=== PATIENT | female | born 1990 | race Caucasian/White ===

== ENCOUNTER 2020-02-25 19:00 | Observation (INO) | payer OTHER ==
--- NOTE | 2020-02-25 19:31 | ED ---
General Adult HPI - General Chief complaint: Seizure Stated complaint: Seizure Time Seen by Provider: 02/25/20 19:12 Source: patient, EMS Mode of arrival: EMS Limitations: no limitations - History of Present Illness Initial comments: Dictation was produced using [employer] dictation software. please excuse any grammatical, word or spelling errors. This patient was cared for during a federal and state declared state of emergency secondary to Covid 19 Chief Complaint: 29-year-old alcoholic presents emergency department for seizures. History of Present Illness: 29-year-old female she has past medical history of alcohol withdrawal seizures. Patient's last alcohol intake was 8 days ago. His beta patient at [facility] for the last 6 days. She has been recovering fine and received withdrawal medications when all of a sudden today she had one seizure. Patient reports that her seizure was witnessed. Is unclear patient was postictal. Patient states she feels a little jittery. She reports that she feels like she is not getting enough Ativan at [facility] for detox. Patient has no pain complaints. She states that one month ago she had a seizure from alcohol withdrawal. Patient states she has been drinking alcohol r egularly. The ROS documented in this emergency department record has been reviewed and confirmed by me. Those systems with pertinent positive or negative responses have been documented in the HPI. All other systems are other negative and/or noncontributory. PHYSICAL EXAM: General Impression: Alert and oriented x3, not in acute distress, non-tremulous HEENT: Normocephalic atraumatic, extra-ocular movements intact, pupils equal and reactive to light bilaterally, mucous membranes moist. Cardiovascular: Heart regular rate and rhythm Chest: Able to complete full sentences, no retractions, no tachypnea Abdomen: abdomen soft, non-tender, non-distended, no organomegaly Musculoskeletal: Pulses present and equal in all extremities, no peripheral edema Motor: no focal deficits noted Neurological: CN II-XII grossly intact, no focal motor or sensory deficits noted Skin: Intact with no visualized rashes Psych: Normal affect and mood ED course: 29-year-old female presents emergency department for seizure. Patient had a seizure at alcohol detox facility. Vital signs upon arrival are within acceptable limits. Patient's well-appearing at bedside. She does not appear to have significant withdrawal symptoms. She is not tremulous and has stable vital signs. EKG is benign.Laboratory evaluation obtained unremarkable. No left acidosis. Serum alcohol is negative. Patient appears comfortable. She is nontender cardiac. She is observed in emergency department for approximately 2 hours in stable medical condition. She does not appear to show signs of alcohol withdrawal. Last check was 8 hours ago. Disposition options were discussed with patient. Patient requested to be discharge back to [place]. Unclear if patient suffered from a tonic-clonic seizure. She is given referral to neurology. EKG interpretation: Ventricular rate 94, sinus rhythm,. Interval 1:30, QRS 80, QTC 452. No FL prolongation, no QTC prolongation, no ST or T-wave changes noted. . Overall, this EKG is unremarkable - Related Data Home Medications Medication Instructions Recorded Confirmed [place] Carbonate 600 mg PO HS 02/25/20 02/25/20 buPROPion XL [Wellbutrin Xl] 150 mg PO DAILY 02/25/20 02/25/20 buPROPion XL [Wellbutrin Xl] 300 mg PO DAILY 02/25/20 02/25/20 Allergies Allergy/AdvReac Type Severity Reaction Status Date / Time codeine Allergy Swelling Verified 02/25/20 20:02 Review of Systems ROS Statement: Those systems with pertinent positive or pertinent negative responses have been documented in the HPI. ROS Other: All systems not noted in ROS Statement are negative. Past Medical History Additional Past Medical History / Comment(s): Pt has has seziure in the past due to ETOH detox History of Any Multi-Drug Resistant Organisms: None Reported Past Surgical History: No Surgical Hx Reported Past Psychological History: No Psychological Hx Reported Smoking Status: Current some day smoker, Vaper Past Alcohol Use History: Daily Past Drug Use History: Marijuana General Exam Limitations: no limitations Medical Decision Making - Lab Data Result diagrams: 02/25/20 19:35 02/25/20 19:35 Lab Results 02/25/20 02/25/20 02/25/20 Range/Units 19:35 19:35 19:35 WBC 10.9 H (3.8-10.6) k/uL RBC 3.75 L (3.80-5.40) m/uL Hgb 12.7 (11.4-16.0) gm/dL Hct 37.6 (34.0-46.0) % MCV 100.0 (80.0-100.0) fL MCH 33.8 (25.0-35.0) pg MCHC 33.8 (31.0-37.0) g/dL RDW 12.6 (11.5-15.5) % Plt Count 356 (150-450) k/uL MPV 7.8 Neutrophils % 76 % Lymphocytes % 15 % Monocytes % 4 % Eosinophils % 3 % Basophils % 1 % Neutrophils # 8.2 H (1.3-7.7) k/uL Lymphocytes # 1.7 (1.0-4.8) k/uL Monocytes # 0.5 (0-1.0) k/uL Eosinophils # 0.3 (0-0.7) k/uL Basophils # 0.1 (0-0.2) k/uL Sodium 138 (137-145) mmol/L Potassium 3.9 (3.5-5.1) mmol/L Chloride 103 (98-107) mmol/L Carbon Dioxide 27 (22-30) mmol/L Anion Gap 8 mmol/L BUN 8 (7-17) mg/dL Creatinine 0.81 (0.52-1.04) mg/dL Est GFR (CKD-EPI)AfAm >90 (>60 ml/min/1.73 sqM) Est GFR (CKD-EPI)NonAf >90 (>60 ml/min/1.73 sqM) Glucose 102 H (74-99) mg/dL Plasma Lactic Acid Devin 2.0 (0.7-2.0) mmol/L Calcium 9.8 (8.4-10.2) mg/dL Serum Alcohol <10 mg/dL Disposition Clinical Impression: Seizure Disposition: HOME SELF-CARE Condition: Fair Instructions (If sedation given, give patient instructions): New-Onset Seizure in Adults (ED) Is patient prescribed a controlled substance at d/c from ED?: No Referrals: Tete Walker MD [Medical Doctor] - 1-2 days Time of Disposition: 21:11
[2020-02-25] MEDS ORDERED: LORazepam 2 MG/ML INJ IV STA (19:40)
[2020-02-25 20:00] LABS: Basophils # (A) 0.1 k/uL (0-0.2); Basophils % (A) 1 %; Eosinophils # (A) 0.3 k/uL (0-0.7); Eosinophils % (A) 3 %; HCT 37.6 % (34.0-46.0); HGB 12.7 gm/dL (11.4-16.0); Lymphocytes # (A) 1.7 k/uL (1.0-4.8); Lymphocytes % (A) 15 %; MCH 33.8 pg (25.0-35.0); MCHC 33.8 g/dL (31.0-37.0); Mean Platelet Volume 7.8; Monocytes # (A) 0.5 k/uL (0-1.0); Monocytes % (A) 4 %; Neutrophils # (A) 8.2 k/uL (1.3-7.7); Neutrophils % (A) 76 %; Platelet Count 356 k/uL (150-450); RBC 3.75 m/uL (3.80-5.40); RDW 12.6 % (11.5-15.5); WBC 10.9 k/uL (3.8-10.6)
[2020-02-25 20:02] LABS: African American GFR (CKD) >90 (>60 ml/min/1.73 sqM); Alcohol <10 mg/dL; Anion Gap 8 mmol/L; Blood Urea Nitrogen 8 mg/dL (7-17); Calcium 9.8 mg/dL (8.4-10.2); Carbon Dioxide 27 mmol/L (22-30); Chloride 103 mmol/L (98-107); Glucose 102 mg/dL (74-99); Non-African American GFR(CKD) >90 (>60 ml/min/1.73 sqM); Potassium 3.9 mmol/L (3.5-5.1); Sodium 138 mmol/L (137-145)
[2020-02-25] MEDS ORDERED: NALOXONE 0.4 MG/ML 1 ML VIAL IV PRN (21:22)
--- NOTE | 2020-02-25 21:22 | ED ---
Medical Decision Making - Medical Decision Making Patient was initially agreeable for discharge however 16 one to be admitted for neurology consultation. - Lab Data Result diagrams: 02/25/20 19:35 02/25/20 19:35 Lab Results 02/25/20 02/25/20 02/25/20 Range/Units 19:35 19:35 19:35 WBC 10.9 H (3.8-10.6) k/uL RBC 3.75 L (3.80-5.40) m/uL Hgb 12.7 (11.4-16.0) gm/dL Hct 37.6 (34.0-46.0) % MCV 100.0 (80.0-100.0) fL MCH 33.8 (25.0-35.0) pg MCHC 33.8 (31.0-37.0) g/dL RDW 12.6 (11.5-15.5) % Plt Count 356 (150-450) k/uL MPV 7.8 Neutrophils % 76 % Lymphocytes % 15 % Monocytes % 4 % Eosinophils % 3 % Basophils % 1 % Neutrophils # 8.2 H (1.3-7.7) k/uL Lymphocytes # 1.7 (1.0-4.8) k/uL Monocytes # 0.5 (0-1.0) k/uL Eosinophils # 0.3 (0-0.7) k/uL Basophils # 0.1 (0-0.2) k/uL Sodium 138 (137-145) mmol/L Potassium 3.9 (3.5-5.1) mmol/L Chloride 103 (98-107) mmol/L Carbon Dioxide 27 (22-30) mmol/L Anion Gap 8 mmol/L BUN 8 (7-17) mg/dL Creatinine 0.81 (0.52-1.04) mg/dL Est GFR (CKD-EPI)AfAm >90 (>60 ml/min/1.73 sqM) Est GFR (CKD-EPI)NonAf >90 (>60 ml/min/1.73 sqM) Glucose 102 H (74-99) mg/dL Plasma Lactic Acid Devin 2.0 (0.7-2.0) mmol/L Calcium 9.8 (8.4-10.2) mg/dL Serum Alcohol <10 mg/dL Disposition Clinical Impression: Seizure Disposition: ADMITTED IP TO THIS [facility] Condition: Fair Instructions (If sedation given, give patient instructions): New-Onset Seizure in Adults (ED) Decision Time: 21:22
[2020-02-25] MEDS ORDERED: SODIUM CHLORIDE 0.9% 1,000 ML IV SCH (21:30)
[2020-02-25] MEDS ORDERED: 0.9% NACL WITH KCL 20 MEQ/L 1,000 ML with MVI, ADULT NO.4 WITH VIT K 10 ML, THIAMINE 10... IV ONE ×4 (23:08)
[2020-02-25] MEDS: LITHIUM CARBONATE 300 MG CAP PO SCH (23:15)
[2020-02-25] MEDS: ACETAMINOPHEN TAB 325 MG TAB PO PRN (23:15)
[2020-02-25] MEDS: SODIUM CHLORIDE 0.9% 1,000 ML IV SCH (23:15)
[2020-02-26] MEDS: ONDANSETRON 4 MG/2 ML VIAL IVP PRN ×2 (03:32→09:49)
[2020-02-26] MEDS: ACETAMINOPHEN TAB 325 MG TAB PO PRN ×3 (03:33→20:41)
--- NOTE | 2020-02-26 15:37 | P.HPIM ---
History of Present Illness This is a pleasant 59 years old female with past medical history of anxiety, bipolar and depression, alcohol abuse and history of seizure before related to her alcohol withdrawal. Patient does not follow with PCP however she has a psychiatrist and psychologist as an outpatient. Patient presents because of seizure. Patient states that she's been having abnormal bowel movement and area for several months, as per patient she had EGD and colonoscopy about 90 days ago showing colitis and internal hemorrhoids, 2 weeks ago she was admitted for recurrent/, Hospital for colitis and discharge in one week to facility for alcohol detox, however over the last 4-5 days she's been having some headache, abnormal vision sports especially at the periphery, pressure behind her eye and gradually her vision became more blurry associated with lightheadedness delirious yesterday she fell on the ground and she had a seizure activity for about 4-5 minutes as she has been told, patient states that her seizure was witnessed by about 20 people there, he woke up in the facility and then embolus was called and sent her to the hospital emergency room. Currently she is fully awake and oriented, she looks lethargic slightly, she fell nausea and shaking her hands, also she has unsteady gait. today she had 2 loose bowel movement for some abdominal cramps Patient states no new medication has started for her over the last 2 weeks Patient states usually she drinks 1 pint of liquor and sometimes with beer and/or wine, she V at nicotine but she denies illicit drugs. She states that her last drink was about one week ago before she is going for alcohol rehab. She was IUCD , and she denies to do test although risks and benefits are explained to her, she stated she had negative test in the urine one week ago. Patient states that she is a little depressed, sometimes she feels suicidal thoughts, last time she follows with suicidal thoughts was about 3 days ago but she denies any such thoughts today. Vitals are stable. Labs showing very mild high WBC at 10.9 K, rest of CBC, BMP is unremarkable, serum alcohol less than 10 EKG showing normal sinus rhythm at 94 Review of Systems CONSTITUTIONAL: No fever, no malaise, no fatigue. HEENT: No recent visual problems or hearing problems. Denied any sore throat. CARDIOVASCULAR: No orthopnea, PND, no palpitations, no syncope. PULMONARY: No shortness of breath, no cough, no hemoptysis. GASTROINTESTINAL: no nausea, no vomiting, Normoactive bowel sounds. NEUROLOGICAL: No headaches, no weakness, no numbness. HEMATOLOGICAL: Denies any bleeding or petechiae. GENITOURINARY: Denies any burning micturition, frequency, or urgency. MUSCULOSKELETAL/RHEUMATOLOGICAL: Denies any joint pain, swelling, or any muscle pain. ENDOCRINE: Denies any polyuria or polydipsia. Past Medical History Additional Past Medical History / Comment(s): Patient has has seziure in the past due to ETOH detox. Had a seizure approx 1 month ago and was drinking at the time. Colitis and has been admitted in the past for this. History of Any Multi-Drug Resistant Organisms: None Reported Past Surgical History: No Surgical Hx Reported Past Anesthesia/Blood Transfusion Reactions: No Reported Reaction Past Psychological History: Anxiety, Bipolar, Depression Smoking Status: Vaper Past Alcohol Use History: Daily Additional Drug Use History / Comment(s): Denies any marijuana or recreational drug use Medications and Allergies Home Medications Medication Instructions Recorded Confirmed Type [place] Carbonate 600 mg PO HS 02/25/20 02/25/20 History buPROPion XL [Wellbutrin Xl] 150 mg PO DAILY 02/25/20 02/25/20 History buPROPion XL [Wellbutrin Xl] 300 mg PO DAILY 02/25/20 02/25/20 History Allergies Allergy/AdvReac Type Severity Reaction Status Date / Time codeine Allergy Swelling Verified 02/25/20 20:02 Physical Exam Vitals: Vital Signs Temp Pulse Pulse Resp BP BP Pulse Ox 02/26/20 09:57 59 L 18 02/26/20 07:42 98.4 F 59 L 18 112/73 98 02/26/20 02:00 98.3 F 66 18 112/77 99 02/25/20 21:23 81 16 113/73 99 Intake and Output 02/25/20 02/26/20 02/26/20 22:59 06:59 14:59 Other: # Voids 1 Weight 61.235 kg GENERAL: The patient is alert and oriented x3, not in any acute distress. Well developed, well nourished. HEENT: Pupils are round and equally reacting to light. EOMI. No scleral icterus. No conjunctival pallor. Normocephalic, atraumatic. No pharyngeal erythema. No thyromegaly. CARDIOVASCULAR: S1 and S2 present. No murmurs, rubs, or gallops. PULMONARY: Chest is clear to auscultation, no wheezing or crackles. ABDOMEN: Soft, nontender, nondistended, normoactive bowel sounds. No palpable o rganomegaly. MUSCULOSKELETAL: No joint swelling or deformity. EXTREMITIES: No cyanosis, clubbing, or pedal edema. NEUROLOGICAL: Gross neurological examination did not reveal any focal deficits. SKIN: No rashes. No petechiae Results CBC & Chem 7: 02/25/20 19:35 02/25/20 19:35 Labs: Abnormal Lab Results - Last 24 Hours (Table) 02/25/20 02/25/20 Range/Units 19:35 19:35 WBC 10.9 H (3.8-10.6) k/uL RBC 3.75 L (3.80-5.40) m/uL Neutrophils # 8.2 H (1.3-7.7) k/uL Glucose 102 H (74-99) mg/dL Thrombosis Risk Factor Assmnt - Choose All That Apply Any of the Below Risk Factors Present?: No Other Risk Factors: No Other congenital or acquired thrombophilia - If yes, enter type in comment: No Thrombosis Risk Factor Assessment Level: Very Low Risk Assessment and Plan Assessment: Seizure Alcohol abuse, Undergoing alcohol detox at-risk of alcohol withdrawal History of colitis, with some loose bowel movements and abdominal cramps Anxiety, depression and bipolar,with some recent history of suicidal thoughts Nicotine dependence Plan: This is a pleasant 49 years old female who was up against with seizure, continue seizure precaution, Ativan as needed and neurology consult. Continue with gentle hydration with banana bag. We will check C. diff Also we'll consult psychiatrist with suicidal precautions, continue with lithium . Wellbutrin was held because it lowers seizure threshold. also check lithium level . Continue with Ativan as needed Labs and medication were reviewed.. Continue same treatment. Continue with symptomatic treatment. Resume home medication. Monitor lytes and vitals. DVT and GI prophylaxis. Further recommendations depends on the clinical course of the patient DVT prophylaxis: Subcutaneous heparin GI Prophylaxis: Pepcid PT/OT: Pending Prognosis is guarded
--- NOTE | 2020-02-26 15:53 | EEG ---
ELECTROENCEPHALOGRAM REPORT DATE OF SERVICE: 02/26/2020 PREAMBLE: This is a 29-year-old female with seizure. This study is performed to evaluate for any epileptiform activity. EEG FINDINGS: This is a 21 channel routine EEG recording in a patient utilizing 10-20 international system with referential and bipolar montages. The background consists of well- developed, moderate voltage activity in mixed alpha and some fast frequency beta activity. Background seems to be reactive to eye opening and closing. Drowsiness was seen with appearance of bilaterally symmetric theta frequency rhythm. Deeper stages of sleep were not seen. No focal or generalized epileptiform activity was seen. The EKG channel showed no arrhythmia. IMPRESSION: This is a normal awake and drowsy EEG. No focal, lateralized, or epileptiform activity was seen. The presence of slightly excessive fast frequency beta activity suggests medication effect. MMODL / IJN: [id number] /
[2020-02-26] MEDS: LORazepam 2 MG/ML INJ IV PRN ×2 (16:07→20:30)
--- NOTE | 2020-02-26 18:42 | P.CNNES ---
History of Present Illness Consult date: 02/26/20 Requesting physician: Mandeep Conway Reason for Consult: Seizure History of Present Illness: Patient is a 29-year-old female with history of alcoholism presented to the hospital yesterday at 7 PM by ambulance. Patient has history of alcohol withdrawal seizures in the past as mentioned below. Patient's last alcohol i ntake was 8 days ago. Patient was in alcohol withdrawal facility [place]. Patient states that she has been feeling cleared sensation for last few days. On the day of seizure, she was walking through the dining room, her face started feeling funny, vision started going dark and she blacked out. When she came to, she was in the floor, and her head was on the nurse's lap in the facility. She did hit her head on the back. Patient did not have any tongue bite or urinary incontinence. Vital signs on arrival blood pressure 113/73, pulse rate 81, temperature 98.3. EKG shows normal sinus rhythm. Probable referral left atrial enlargement. Patient's blood test shows WBC 10.9 hemoglobin 12.7, platelets 356. Chem-7 is normal. Calcium normal blood elbow level negative. patient states that she had history of seizure twice in the past as well. The first one was about 3 years ago in the next 16 weeks ago. Vivek she was doing alcoholism. However on this time, she has not had any alcoholic drink for last 8 days. She went to rehab facility on 02/19/2020. Patient has been started on Wellbutrin 450 mg every day since she is in rehab facility. Patient drinks 1 to 2. of liquor every day for the last 8 months. She prefers vodka and sometimes whiskey. She smokes couple packs of cigarettes per week. Patient does not take any benzos. Patient states her sister also has seizures, who is 47 years of age. Review of Systems As above in detail. Patient complains of depression, anxiety. Denies any problems with vision, hoarseness, sore throat, dysphagia. Denies abdominal pain, nausea, vomiting, diarrhea. Denies neck or back pain. All other review of systems unremarkable. Past Medical History Additional Past Medical History / Comment(s): Patient has has seziure in the past due to ETOH detox. Had a seizure approx 1 month ago and was drinking at the time. Colitis and has been admitted in the past for this. History of Any Multi-Drug Resistant Organisms: None Reported Past Surgical History: No Surgical Hx Reported Past Anesthesia/Blood Transfusion Reactions: No Reported Reaction Past Psychological History: Anxiety, Bipolar, Depression Smoking Status: Vaper Past Alcohol Use History: Daily Additional Drug Use History / Comment(s): Denies any marijuana or recreational drug use Medications and Allergies Home Medications Medication Instructions Recorded Confirmed Type [place] Carbonate 600 mg PO HS 02/25/20 02/25/20 History buPROPion XL [Wellbutrin Xl] 150 mg PO DAILY 02/25/20 02/25/20 History buPROPion XL [Wellbutrin Xl] 300 mg PO DAILY 02/25/20 02/25/20 History Allergies Allergy/AdvReac Type Severity Reaction Status Date / Time codeine Allergy Swelling Verified 02/25/20 20:02 Physical Examination - Vital Signs Vital Signs: Vital Signs Temp Pulse Pulse Resp BP BP Pulse Ox 02/26/20 09:57 59 L 18 02/26/20 07:42 98.4 F 59 L 18 112/73 98 02/26/20 02:00 98.3 F 66 18 112/77 99 02/25/20 21:23 81 16 113/73 99 Intake and Output 02/25/20 02/26/20 02/26/20 22:59 06:59 14:59 Other: # Voids 1 Weight 61.235 kg On examination patient is a young female, in no acute distress. She is alert and awake fully oriented. Speech and language functions are normal. Attention, concentration, fund of knowledge is adequate. On cranial nerve examination pupils are round and reactive to light, visual brumfield are full on confrontation, extraocular muscles are intact with no nystagmus. Face is symmetric, tongue protrudes to the midline. Palatal elevation and sensation normal. Hearing and shoulder shrug normal. Facial sensation is normal. On mus michelle strength testing there is no pronator drift and the strength is normal in arms and legs distally and proximally. Reflexes are 2+ all over and plantars downgoing. Sensory touch is equal. No ataxia for [id number] testing. Tone and bulk of muscles normal. Patient has very fine tremors of outstretched hands. Appears to be still withdrawing. On general examination there is no carotid bruit or murmur, peripheral pulses present. Chest is clear, abdomen soft nontender. Results - Laboratory Findings CBC and BMP: 02/25/20 19:35 02/25/20 19:35 Abnormal Lab Findings: Abnormal Labs 02/25/20 02/25/20 19:35 19:35 WBC 10.9 H RBC 3.75 L Neutrophils # 8.2 H Glucose 102 H Assessment and Plan Assessment: * Seizure, probably due to alcohol withdrawal, and also probably related to use of Wellbutrin, which can lower seizure threshold. * History of seizures twice in the past, both related to alcoholism. * Depression. Plan: * Patient had an EEG performed today, which is normal. No focal, lateralized or epileptiform activity was seen. Presence of slightly excessive fast frequency beta activity suggests medication effect. * Patient's seizure likely provoked due to alcohol withdrawal and use of Wellbutrin. Will stop Wellbutrin. Continue treatment for alcohol withdrawal. No indication for antiepileptic medication. * Patient informed of [place] state law of no driving unless seizure free for 6 months, climbing ladders, operate dangerous machinery or unsupervised swimming. * Patient does have significant depression, but denies any suicidal ideation. We are taking her off Wellbutrin. I discussed with her about trying another antidepressant medication like Lexapro, but patient declined. She states she has "tried them all". * Neurologically clear for discharge.
[2020-02-26] MEDS: HEPARIN SODIUM,PORCINE 5,000 UNIT/ML 1 ML VIAL SQ SCH (20:30)
[2020-02-26] MEDS: FAMOTIDINE 20 MG/2 ML VIAL IV SCH (20:30)
[2020-02-26] MEDS: LITHIUM CARBONATE 300 MG CAP PO SCH (20:30)
[2020-02-27] MEDS: SODIUM CHLORIDE 0.9% 1,000 ML IV SCH (01:16)
[2020-02-27] MEDS: LORazepam 2 MG/ML INJ IV PRN (02:05)
[2020-02-27] MEDS: FAMOTIDINE 20 MG/2 ML VIAL IV SCH (06:55)
[2020-02-27] MEDS: HEPARIN SODIUM,PORCINE 5,000 UNIT/ML 1 ML VIAL SQ SCH (06:55)
[2020-02-27 08:14] VITALS: RESP 16
[2020-02-27] MEDS ORDERED: diphenhydrAMINE 25 MG CAP PO STA (08:59)
[2020-02-27] MEDS: ONDANSETRON 4 MG/2 ML VIAL IVP PRN (09:00)
[2020-02-27] MEDS: ACETAMINOPHEN TAB 325 MG TAB PO PRN (09:00)
[2020-02-27] MEDS ORDERED: hydrOXYzine pamoate 25 MG CAP PO PRN (13:55)
[2020-02-27] MEDS ORDERED: SERTRALINE 50 MG TAB PO SCH (14:00)
[2020-02-27] MEDS ORDERED: traZODone HCL 100 MG TAB PO PRN (14:37)
--- NOTE | 2020-02-27 14:40 | P.CN ---
Psychiatric Consult - . Consult date: 02/27/20 Consult:: 02/27/20 13:56 IDENTIFYING DATA: This patient is a 29 y/o female with a hx of etoh use disorder, coming from [place] and currently living wit her grandmother and fiance, has no kids and works at [employer]. REASON FOR REFERRAL: Psychiatry was consulted for depression with suicidal ideations and Wellbutrin was being held due to seizures. HISTORY OF PRESENT ILLNESS: The patient presented to the hospital for alcohol withdrawal seizure. Patient reported in the ER that her last drink was 8 days prior to admission. She states that she was coming from [place] which she has been there for the past 6 days prior to coming in the hospital and suffered a seizure prior to coming into the hospital due to the alcohol withdrawal. Neurology was following along and did an EEG. Patient's nurse claims that patient has been doing fairly well and no specific complaints or problems. Patient was seen at the bedside and was agreeable to speak to radio news writer. She was alert, and cooperative with radio news writer during interview. She claims that she has been dealing with depression for several years now. She claims that at this current time she is not having any suicidal thoughts and states that she was having a "rough time" at [place]. She claims that she is there for alcohol detox and withdrawal along with rehab and states that she was feeling "not well" for the past week before finally having a seizure. She claims that she has "dark vision and was feeling diaphoretic or to the event. She states that she has been sleeping fairly with the trazodone at nighttime. She claims that she has a history of bipolar [address] Thorne at [facility]. She admits to ongoing anxiety. She admits to a fair appetite. At this time patient denies any suicidal or homical ideations, intent or plan. Patient denies any auditory, visual hallucinations and denies any paranoia or delusions. Patients admits to using alcohol daily approximately 1-2 pints of liquor per day and states that this is going on for over a year now. She denies any other recreational drug use however does use cigarettes daily and sleeping. PAST PSYCHIATRIC HISTORY: Patient has a a history of bipolar disorder type 2. She claims that she was previously on lithium Wellbutrin and trazodone. She claims that she was previously admitted to [facility] in [place] psychiatrically over 3 years ago and has been admitted 2 times prior to that. Patient follows up at [facility] with Dr. Thorne. She claims that she had 2 suicide attempts in the past when she was a lot younger one where she cut herself now that she overdosed. PAST MEDICAL HISTORY: Seizure disorder ALLERGIES: as per EMR. CHEMICAL DEPENDENCY HISTORY: as per HPI. FAMILY PSYCHIATRIC/SUBSTANCE USE HISTORY: States that her brother father and mother all have depression. SOCIAL HISTORY: Patient was born and raised in [place], [place]. She states that she currently lives with her fianc and grandmother in a house. She claims that she has no kids and works at [employer]. She states that she completed some college then dropped out. She states that she has two OWI charges and served time in [facility] 2 yrs ago. MENTAL STATUS EXAM: General Appearance: Patient appears to be stated age is alert, directable, and attempts to be cooperative. Patient appears to have [fair] hygiene and grooming wearing hospital gown with [fair] eye contact. Behavior: [Patient is calmly lying in bed without any agitated behavior.] Timid at times. Speech: Patient's speech is fluent and nonpressured. [place]. Mood/Affect: Patient reports their mood is "depressed", affect is congruent and constricted Suicidality/Homicidality: Patient denies having any suicidal or homicidal ideation intent or plan. Perceptions: Patient denies any visual hallucinations and denies any auditory hallucinations Though content/process: There is no evidence of any delusional thought content and thought process is linear and goal-directed. poverty of content. Memory and concentration: AOX3, grossly intact for the purposes of this session Judgment and insight: fair. IMPRESSIONS: Bipolar disorder, depressed Alcohol use disorder nicotine dependence. PLAN: -At this time patient DOES NOT meet criteria for inpatient psychiatric admission. -Would recommend the following medication changes/additions: Agree with discontinuing Wellbutrin at this time due to lowering the threshold for seizures. Patient is agreeable to start Zoloft 50 mg daily for mood/anxiety today. Patient can be sent home with a two-week supply of Vistaril 25 mg twice a day when necessary for anxiety. Can continue with trazodone 100 mg daily at bedtime when necessary for insomnia. Continue with lithium 600 mg daily at bedtime for mood stabilization/suicidal thoughts. -Patient will be following up with Dr. Thorne at [facility] who is her outpt psychiatrist and also will be continuing with outpt therapy at [facility]. -Box Office Agent spoke with patient about substance abuse and the harmful effects on medical and mental health, patient verbally understood and agreed. -Patient is agreeable to go back to [place] upon discharge to continue on with inpatient rehab. -Communicated plan to patient's nurse -Psychiatry will sign off at this time -Please contact with any questions.
[2020-02-27 15:34] VITALS: BP 113/75; PULSE 92; TEMP 98.4
--- NOTE | 2020-02-28 00:02 | P.DS ---
Providers Date of admission: 02/25/20 21:22 Attending physician: Mukund Moody Consults: 02/25/20 21:23 Consult Physician Routine Consulting Provider: Alfredo Olea Consult Reason/Comments: seizure Do you want consulting provider notified?: Yes 02/26/20 15:28 Consult Physician Urgent Consulting Provider: Yasmany James Consult Reason/Comments: depression , with suicidal thoughts at times. wellbutrin is on hold for SZD Do you want consulting provider notified?: Yes Primary care physician: Stated None Hospital Course: Diagnoses: Seizure secondary to combined effect of alcohol withdrawal and Wellbutrin Alcohol abuse, Undergoing alcohol detox at-risk of alcohol withdrawal History of colitis, with some loose bowel movements and abdominal cramps , imp roving Anxiety, depression and bipolar,with some recent history of suicidal thoughts Nicotine dependence Hospital course: This is a pleasant 29 years old female with past medical history of anxiety, bipolar and depression, alcohol abuse and history of seizure before related to her alcohol withdrawal. Patient does not follow with PCP however she has a psychiatrist and psychologist as an outpatient. Patient presents because of seizure. She was doing alcohol detox for the last week when she developed witnessed seizure, she has been evaluated by neurologist, EEG showing no epileptic discharge. No more seizures and patient is back to her baseline, it is thought that her seizures alcohol withdrawal and oozing Wellbutrin for depression as she was noncompliant with Wellbutrin to over the last 2 weeks when she started taking it every day. She was taking 300 mg daily and 150 mg at night. Wellbutrin was stopped and patient informed and she agrees. No need for other antiseizure medication per neurologist Psych team evaluated the patient: Recommended to continue to hold Wellbutrin and [address] with Zoloft and hydroxyzine for 2 weeks Also recommended trazodone 100 mg daily at bedtime when necessary for insomnia. However there is severe interaction with the trazodone and lithium so it wasn't provided for the patient upon discharge Patient was cleared for discharge by neurologist and psychiatric services Problems and management plan were discussed with the patient and he verbalized understanding and acceptance Patient was found stable and can be discharged home however he needs follow-up as an outpatient. Patient was instructed to follow up with PCP within one week and patient agrees Also patient was instructed to go back to finish her alcohol rehab and she agrees Physical exam Gen: patient is a AAOx3, no distress CVS: S1-S2, RRR, no murmur Lungs: B/L CTA, no wheezing Abdomen: soft, no distention, no tenderness, positive bowel sounds Extremity: no leg edema or induration Time spent more than 35 minutes Patient Condition at Discharge: Fair Plan - Discharge Summary Discharge Rx Participant: No New Discharge Prescriptions: New Acetaminophen Tab [Tylenol] 650 mg PO Q4HR PRN tab PRN Reason: Fever And/ Or Pain hydrOXYzine pamoate [Vistaril] 25 mg PO BID PRN #30 cap PRN Reason: Anxiety Sertraline [Zoloft] 50 mg PO DAILY #30 tab Continue [place] Carbonate 600 mg PO HS Discontinued buPROPion XL [Wellbutrin Xl] 300 mg PO DAILY buPROPion XL [Wellbutrin Xl] 150 mg PO DAILY Discharge Medication List [place] Carbonate 600 mg PO HS 02/25/20 [History] Acetaminophen Tab [Tylenol] 650 mg PO Q4HR PRN tab 02/27/20 [Rx] Sertraline [Zoloft] 50 mg PO DAILY #30 tab 02/27/20 [Rx] hydrOXYzine pamoate [Vistaril] 25 mg PO BID PRN #30 cap 02/27/20 [Rx] Follow up Appointment(s)/Referral(s): Aaron Lima MD [REFERRING[facility] Patient Instructions/Handouts: New-Onset Seizure in Adults (ED) Activity/Diet/Wound Care/Special Instructions: [place] to pick up operator on discharge: #[phone] resume your previous diet activity as tolerated we recommend you following up with Dr. Thorne at [facility] who is your outpt psychiatrist Discharge Disposition: HOME SELF-CARE
== END 2020-02-27 17:04 | disposition home or self-care (01) ==
LOC: EC 19:00 → 4SSUR 21:22
PROVIDERS: ADMIT Hospitalist; ATTEND Hospitalist
DX: R56.9 Unspecified convulsions (principal); F10.239 Alcohol dependence with withdrawal, unspecified; F17.210 Nicotine dependence, cigarettes, uncomplicated; F31.9 Bipolar disorder, unspecified; F41.9 Anxiety disorder, unspecified; I51.7 Cardiomegaly; K52.9 Noninfective gastroenteritis and colitis, unspecified; R45.851 Suicidal ideations; Z79.899 Other long term (current) drug therapy
CPT/HCPCS: 99285; 96365; 96376 ×2; 96366; 96372 ×2; 96375 ×2; 36415; 95819; 93005; 97161; 97165; 80048; 83605; 80178; 85025; G0378 ×3; G0480; J2060 ×3; J1644 ×2; J3411; J2405 ×2; 80320

== ENCOUNTER → 2020-05-26 | Outpatient (CLI) | payer OTHER ==
--- NOTE | 2020-05-26 16:42 | XR ---
Cervical spine HISTORY: Pain radiating into hands 5 views of the cervical spine There is a reversal of the normal cervical lordosis. Cervical vertebral bodies show preserved height and bone mineralization. Disc spaces are relatively maintained, there is no significant foraminal enc roachment. Odontoid view somewhat limited. Prevertebral soft tissues are normal. There is some mild f acet arthropathy. IMPRESSION: Reversal of normal lordosis could be due to muscle spasm. Facet arthropathy changes, cerv ical MRI may be of benefit
== END | disposition home or self-care (01) ==
LOC: RADXRMAIN 13:58
PROVIDERS: ATTEND Nurse Practitioner Family
DX: M47.812 Spondylosis without myelopathy or radiculopathy, cervical region (principal)
CPT/HCPCS: 72050

== ENCOUNTER → 2020-11-04 | Outpatient (CLI) | payer OTHER ==
[2020-11-05 03:29] LABS: T4, Free (Free Thyroxine) 1.1 ng/dL (0.80-1.80)
[2020-11-05 04:03] LABS: African American GFR (CKD) 86.3 (60.0-200.0); Lithium 0.5 mmol/L (0.5-1.2); Non-African American GFR(CKD) 74.5 (60.0-200.0)
== END | disposition home or self-care (01) ==
LOC: LABWHC1 12:02
PROVIDERS: ATTEND Psychiatry & Neurology Psychiatry
DX: Z79.899 Other long term (current) drug therapy (principal)
CPT/HCPCS: 36415; 80178; 82565; 84439; 84443; 84520

== ENCOUNTER → 2020-12-23 | Outpatient (CLI) | payer OTHER | END | disposition home or self-care (01) | LOC: LABWHC1 12:07 | PROVIDERS: ATTEND Nurse Practitioner Family | DX: M25.50 Pain in unspecified joint (principal); Z82.61 Family history of arthritis | CPT/HCPCS: 36415; 86200; 86235 ==

== ENCOUNTER 2021-02-26 13:07 | Emergency (ER) | payer OTHER ==
[2021-02-26 13:24] VITALS: BP 121/79; PULSE 95; RESP 18; TEMP 97.8
[2021-02-26] MEDS ORDERED: ONDANSETRON 4 MG/2 ML VIAL IVP STA (13:48)
[2021-02-26] MEDS ORDERED: SODIUM CHLORIDE 0.9% 1,000 ML IV STA (13:48)
--- NOTE | 2021-02-26 14:10 | ED ---
Nausea/Vomiting/Diarrhea HPI - General Chief complaint: Nausea/Vomiting/Diarrhea Stated complaint: Covid, Dehydration, NVD Time Seen by Provider: 02/26/21 13:48 Source: patient, RN notes reviewed Mode of arrival: ambulatory Limitations: no limitations - History of Present Illness Initial comments: This is a pleasant 30-year-old female presents a risk factor pain nausea and vomiting. Patient states she's had symptoms are COVID-19 for about 10 days. S he states she had respiratory symptoms including runny nose, sore throat, body aches, and mild cough. She states that about 3 days ago she started developing diarrhea and vomiting. Patient denies any hematemesis or coffee-ground emesis. No melena or hematochezia. Denies any chest pain or abdominal pain. No skin rashes or lesions. No headache. No vision or hearing changes. Patient denies chance of . No vaginal discharge. MD complaint: nausea, vomiting - Related Data Home Medications Medication Instructions Recorded Confirmed [place] Carbonate 600 mg PO HS 02/25/20 02/25/20 Previous Rx's Medication Instructions Recorded Acetaminophen Tab [Tylenol] 650 mg PO Q4HR PRN tab 02/27/20 Sertraline [Zoloft] 50 mg PO DAILY #30 tab 02/27/20 hydrOXYzine pamoate [Vistaril] 25 mg PO BID PRN #30 cap 02/27/20 Ondansetron Odt [Zofran Odt] 4 mg PO Q8HR PRN #20 tab 02/26/21 Allergies Allergy/AdvReac Type Severity Reaction Status Date / Time codeine Allergy Swelling Verified 02/26/21 13:24 Review of Systems ROS Statement: Those systems with pertinent positive or pertinent negative responses have been documented in the HPI. ROS Other: All systems not noted in ROS Statement are negative. Past Medical History Additional Past Medical History / Comment(s): Patient has has seziure in the past due to ETOH detox. Had a seizure approx 1 month ago and was drinking at the time. Colitis and has been admitted in the past for this. History of Any Multi-Drug Resistant Organisms: None Reported Past Surgical History: No Surgical Hx Reported Past Anesthesia/Blood Transfusion Reactions: No Reported Reaction Past Psychological History: Anxiety, Bipolar, Depression Smoking Status: Vaper Past Alcohol Use History: Daily General Exam - General Exam Comments Initial Comments: Past healthy-appearing 30-year-old female in minimal distress. Patient does not appear to be ill or toxic. Limitations: no limitations General appearance: alert, in no apparent distress Head exam: Present: atraumatic, normocephalic, normal inspection Eye exam: Present: normal appearance, PERRL, EOMI. Absent: scleral icterus, conjunctival injection, periorbital swelling ENT exam: Present: normal exam, mucous membranes moist Neck exam: Present: normal inspection. Absent: tenderness, meningismus, lym phadenopathy Respiratory exam: Present: normal lung sounds bilaterally. Absent: respiratory distress, wheezes, rales, rhonchi, stridor Cardiovascular Exam: Present: regular rate, normal rhythm, normal heart sounds. Absent: systolic murmur, diastolic murmur, rubs, gallop, clicks GI/Abdominal exam: Present: soft, hyperactive bowel sounds. Absent: distended, tenderness, guarding, rebound, rigid Extremities exam: Present: normal inspection, full ROM, normal capillary refill. Absent: tenderness, pedal edema, joint swelling, calf tenderness Back exam: Present: normal inspection Neurological exam: Present: alert, oriented X3, CN II-XII intact Psychiatric exam: Present: normal affect, normal mood Skin exam: Present: warm, dry, intact, normal color. Absent: rash Course Vital Signs 02/26/21 13:19 Temperature 97.8 F Pulse Rate 95 Respiratory 18 Rate Blood Pressure 121/79 O2 Sat by Pulse 99 Oximetry - Reevaluation(s) Reevaluation #1: 02/26/21 14:45 Patient reevaluated and is resting comfortably in the room. Only down fluids without difficulty. Medical Decision Making - Medical Decision Making Patient presents with, nausea/vomiting. Likely related COVID-19 and she did test positive within the last 10 days. Patient now quarantine. Patient states her respiratory symptoms have essentially resolved but she still has vomiting and diarrhea. No abdominal tenderness. Differential diagnosis includes other viral etiology as well. Patient also states that she was drinking from contaminated water filter over the past 3 days. This is possible but less likely etiology. Follow-up with your regular physician as directed. Return to the ER immediately if any symptoms worsen, new symptoms arise, or any other problems develop. Patient reevaluated prior to discharge as doing well. Holding down fluids. Will treat with Zofran and clear liquid diet. Patient concurs with this treatment plan. Quarantine measures discussed. Follow-up with your regular physician as directed. Return to the ER immediately if any symptoms worsen, new symptoms arise, or any other problems develop. - Lab Data Result diagrams: 02/26/21 14:00 02/26/21 14:00 Lab Results 02/26/21 02/26/21 02/26/21 Range/Units 14:00 14:00 14:00 WBC 11.0 H (3.8-10.6) k/uL RBC 4.84 (3.80-5.40) m/uL Hgb 14.4 (11.4-16.0) gm/dL Hct 43.8 (34.0-46.0) % MCV 90.4 (80.0-100.0) fL MCH 29.7 (25.0-35.0) pg MCHC 32.8 (31.0-37.0) g/dL RDW 12.7 (11.5-15.5) % Plt Count 499 H (150-450) k/uL MPV 7.2 Neutrophils % 76 % Lymphocytes % 20 % Monocytes % 3 % Eosinophils % 0 % Basophils % 0 % Neutrophils # 8.3 H (1.3-7.7) k/uL Lymphocytes # 2.2 (1.0-4.8) k/uL Monocytes # 0.3 (0-1.0) k/uL Eosinophils # 0.0 (0-0.7) k/uL Basophils # 0.0 (0-0.2) k/uL Sodium 138 (137-145) mmol/L Potassium 4.3 (3.5-5.1) mmol/L Chloride 102 (98-107) mmol/L Carbon Dioxide 24 (22-30) mmol/L Anion Gap 12 mmol/L BUN 14 (7-17) mg/dL Creatinine 0.59 (0.52-1.04) mg/dL Est GFR (CKD-EPI)AfAm >90 (>60 ml/min/1.73 sqM) Est GFR (CKD-EPI)NonAf >90 (>60 ml/min/1.73 sqM) Glucose 97 (74-99) mg/dL Calcium 9.2 (8.4-10.2) mg/dL Total Bilirubin 0.4 (0.2-1.3) mg/dL AST 36 (14-36) U/L ALT 25 (4-34) U/L Alkaline Phosphatase 67 (38-126) U/L Total Protein 7.2 (6.3-8.2) g/dL Albumin 4.3 (3.5-5.0) g/dL Lipase 100 (23-300) U/L Urine Color Light Yellow Urine Appearance Clear (Clear) Urine pH 6.0 (5.0-8.0) Ur Specific [place] 1.006 (1.001-1.035) Urine Protein Negative (Negative) Urine Glucose (UA) Negative (Negative) Urine Ketones Negative (Negative) Urine Blood Negative (Negative) Urine Nitrite Negative (Negative) Urine Bilirubin Negative (Negative) Urine Urobilinogen <2.0 (<2.0) mg/dL Ur Leukocyte Esterase Negative (Negative) Urine HCG, Qual (Not Detectd) 02/26/21 Range/Units 14:00 WBC (3.8-10.6) k/uL RBC (3.80-5.40) m/uL Hgb (11.4-16.0) gm/dL Hct (34.0-46.0) % MCV (80.0-100.0) fL MCH (25.0-35.0) pg MCHC (31.0-37.0) g/dL RDW (11.5-15.5) % Plt Count (150-450) k/uL MPV Neutrophils % % Lymphocytes % % Monocytes % % Eosinophils % % Basophils % % Neutrophils # (1.3-7.7) k/uL Lymphocytes # (1.0-4.8) k/uL Monocytes # (0-1.0) k/uL Eosinophils # (0-0.7) k/uL Basophils # (0-0.2) k/uL Sodium (137-145) mmol/L Potassium (3.5-5.1) mmol/L Chloride (98-107) mmol/L Carbon Dioxide (22-30) mmol/L Anion Gap mmol/L BUN (7-17) mg/dL Creatinine (0.52-1.04) mg/dL Est GFR (CKD-EPI)AfAm (>60 ml/min/1.73 sqM) Est GFR (CKD-EPI)NonAf (>60 ml/min/1.73 sqM) Glucose (74-99) mg/dL Calcium (8.4-10.2) mg/dL Total Bilirubin (0.2-1.3) mg/dL AST (14-36) U/L ALT (4-34) U/L Alkaline Phosphatase (38-126) U/L Total Protein (6.3-8.2) g/dL Albumin (3.5-5.0) g/dL Lipase (23-300) U/L Urine Color Urine Appearance (Clear) Urine pH (5.0-8.0) Ur Specific [place] (1.001-1.035) Urine Protein (Negative) Urine Glucose (UA) (Negative) Urine Ketones (Negative) Urine Blood (Negative) Urine Nitrite (Negative) Urine Bilirubin (Negative) Urine Urobilinogen (<2.0) mg/dL Ur Leukocyte Esterase (Negative) Urine HCG, Qual Not Detected (Not Detectd) Disposition Clinical Impression: COVID-19, Nausea vomiting and diarrhea Disposition: HOME SELF-CARE Condition: Good Instructions (If sedation given, give patient instructions): Coronavirus Disease 2019 (COVID-19), Acute Nausea and Vomiting (ED) Additional Instructions: SELF QUARANTINE DISCHARGE: As you are at risk for symptoms due to coronavirus, please stay home and stay away from others as much as possible. Please maintain social distance of 6 feet if possible. You should not return to work until at least 3 days (72 hours) have passed since recovery of symptoms. This defined as resolution of fever without the use of fever reducing medicines and improvement in respiratory symptoms (e.g,, cough, shortness of breath) Isolation can end at least 5 days after symptom onset and after fever ends for 24 hours (without the use of fever-reducing medication) and symptoms are improving, if these people can continue to properly wear a well-fitted mask around others for 5 more days after the 5-day isolation period. If you're still having symptoms at the end of 5 day period, isolate for an additional 5 days. More information about what to do if you are sick can be found on the CDC website at https://www.cdc.gov/coronavirus /2019-ncov/pt-gps-llw-sick/pxmmi-lfto-zbmj.html Expect the symptoms to last for 7-14 days from onset. Use acetaminophen (Tylenol) as needed for discomfort. You can take a maximum of 1 gram every 6 hours for discomfort, with your total dose in 24 hours not exceeding 4 grams. Be sure to maintain hydration. Drink continuous water and/or items high in vitamin C, such as orange juice and/or lemonade. Unless you have high blood pressure, you may consider Sudafed (which is [id number]) for nasal congestion. I would suggest that a short acting Sudafed rather than the 24 hour Sudafed. For a cough you may take Mucinex or Robitussin. Also consider the use of Vicks Vapor Rub or your chest when you sleep. Use a humidifier that is cleaned frequently, in the bedroom at night. For Nausea /Vomiting/Diarrhea associated with your Illness: o Small frequent sips of room temperature liquids. o Diet: [place] [employer] - If you are still experiencing discomfort and/or nausea please slowly advancing your diet using the BRAT Diet = bananas, rice, apples/apple sauce, toast. o With diarrhea avoid any dairy for 48 hours after symptoms resolved. o Continue with activity as tolerated. If your symptoms do get worse and you believe that the upper respiratory infection has developed into something else, such as pneumonia or severe dehydration, please return to the emergency department or follow-up with your primary care. But expect to be symptomatic for the days as indicated above Prescriptions: Ondansetron Odt [Zofran Odt] 4 mg PO Q8HR PRN #20 tab PRN Reason: Vomiting Is patient prescribed a controlled substance at d/c from ED?: No Referrals: Princess Almendarez MD [Primary Care Provider] - 03/04/21 Time of Disposition: 14:42
[2021-02-26 14:23] LABS: Basophils % (A) 0 %; Eosinophils % (A) 0 %; HCT 43.8 % (34.0-46.0); HGB 14.4 gm/dL (11.4-16.0); Lymphocytes # (A) 2.2 k/uL (1.0-4.8); Lymphocytes % (A) 20 %; MCH 29.7 pg (25.0-35.0); MCHC 32.8 g/dL (31.0-37.0); MCV 90.4 fL (80.0-100.0); Mean Platelet Volume 7.2; Monocytes # (A) 0.3 k/uL (0-1.0); Monocytes % (A) 3 %; Neutrophils # (A) 8.3 k/uL (1.3-7.7); Neutrophils % (A) 76 %; Platelet Count 499 k/uL (150-450); RBC 4.84 m/uL (3.80-5.40); RDW 12.7 % (11.5-15.5)
[2021-02-26 14:24] LABS: Appearance,Urine Clear (Clear); Bilirubin,Urine Negative (Negative); Blood,Urine Negative (Negative); Color,Urine Light Yellow; Glucose,Urine (UA) Negative (Negative); Ketones,Urine Negative (Negative); Leukocyte Esterase,Urine Negative (Negative); Nitrite,Urine Negative (Negative); Protein,Urine Negative (Negative); Specific Gravity,Urine 1.006 (1.001-1.035); Urobilinogen,Urine <2.0 mg/dL (<2.0)
[2021-02-26 14:34] LABS: ALT 25 U/L (4-34); AST 36 U/L (14-36); African American GFR (CKD) >90 (>60 ml/min/1.73 sqM); Albumin 4.3 g/dL (3.5-5.0); Alkaline Phosphatase 67 U/L (38-126); Anion Gap 12 mmol/L; Blood Urea Nitrogen 14 mg/dL (7-17); Calcium 9.2 mg/dL (8.4-10.2); Carbon Dioxide 24 mmol/L (22-30); Chloride 102 mmol/L (98-107); Glucose 97 mg/dL (74-99); Lipase 100 U/L (23-300); Non-African American GFR(CKD) >90 (>60 ml/min/1.73 sqM); Potassium 4.3 mmol/L (3.5-5.1); Sodium 138 mmol/L (137-145); Total Bilirubin 0.4 mg/dL (0.2-1.3); Total Protein 7.2 g/dL (6.3-8.2)
== END 2021-02-26 15:09 | disposition home or self-care (01) ==
LOC: EC 13:07
DX: U07.1 COVID-19 (principal); F17.290 Nicotine dependence, other tobacco product, uncomplicated; Z88.5 Allergy status to narcotic agent
CPT/HCPCS: 36415; 80053; 83690; 85025; 81003; 81025; 99284; 96374; 96361; J2405

== ENCOUNTER 2021-03-17 18:02 | Inpatient (IN) | payer OTHER ==
[2021-03-17] MEDS ORDERED: SODIUM CHLORIDE 0.9% 1,000 ML IV STA (18:12)
--- NOTE | 2021-03-17 18:22 | ED ---
General Adult HPI - General Chief complaint: Alcohol Stated complaint: Alcohol Time Seen by Provider: 03/17/21 18:05 Source: patient Mode of arrival: ambulatory Limitations: no limitations - History of Present Illness Initial comments: Dictation was produced using [employer] dictation software. please excuse any grammatical, word or spelling errors. Chief Complaint: 30-year-old female presents emergency department for concerns of alcohol withdrawal History of Present Illness: 80-year-old female she has history of alcoholism. Patient states that she's been drinking large amounts of alcohol daily for the last several weeks. Patient has history of alcohol withdrawals. She's had alcohol withdrawal seizures in the past. She states he was last year. Patient's having insomnia episodes. Patient is worried that she is concerned guo ving seizures. Patient denies any pain complaints. No shortness of breath. No nausea or vomiting. Patient states she's had to feel shaky and having insomnia. She states she had half a couple beer earlier today as an attempt to try and taper herself off of alcohol. The ROS documented in this emergency department record has been reviewed and confirmed by me. Those systems with pertinent positive or negative responses have been documented in the HPI. All other systems are other negative and/or noncontributory. PHYSICAL EXAM: General Impression: Alert and oriented x3, not in acute distress HEENT: Normocephalic atraumatic, extra-ocular movements intact, pupils equal and reactive to light bilaterally, mucous membranes moist. Cardiovascular: Heart regular rate and rhythm Chest: Able to complete full sentences, no retractions, no tachypnea Abdomen: abdomen soft, non-tender, non-distended, no organomegaly Musculoskeletal: Pulses present and equal in all extremities, no peripheral alix a Motor: no focal deficits noted Neurological: CN II-XII grossly intact, no focal motor or sensory deficits noted Skin: Intact with no visualized rashes Psych: Normal affect and mood ED course: 30-year-old feel presents to emergency department for concerns of alcohol withdrawal. Vital signs upon arrival are within acceptable limits. Patient states she has an IUD. evaluation obtained. CBC, metabolic panel is unremarkable. Serum alcohol is 163. Patient observed in the emergency department for approximately 3 hours patient reevaluated at bedside. She still comfortable appearing. Disposition options were discussed. Patient states that she had severe symptoms from alcohol withdrawal in the past including hallucinations and seizures. Patient states she is motivated to quit alcohol again. Considering patient's history with alcohol withdrawal I believe she'll benefit from inpatient admission for observation. Case discussed with patient [place] hospitalist group, Dr. Brown went accept patient's care. EKG interpretation: Ventricular rate 95, sinus rhythm,. 136, QRS 76, QTC 469. No GA prolongation, no QTC prolongation, no ST or T-wave changes noted. Overall, this EKG is unremarkable - Related Data Home Medications Medication Instructions Recorded Confirmed [place] Carbonate 600 mg PO HS 02/25/20 03/17/21 Atomoxetine HCl 80 mg PO HS 03/17/21 03/17/21 Desvenlafaxine Succinate [Pristiq] 100 mg PO HS 03/17/21 03/17/21 Disulfiram [Antabuse] 250 mg PO DAILY 03/17/21 03/17/21 cloNIDine HCL 0.2 mg PO HS 03/17/21 03/17/21 traMADol HCL 50 mg PO DAILY PRN 03/17/21 03/17/21 Previous Rx's Medication Instructions Recorded Ondansetron Odt [Zofran Odt] 4 mg PO Q8HR PRN #20 tab 02/26/21 Allergies Allergy/AdvReac Type Severity Reaction Status Date / Time codeine Allergy Swelling Verified 03/17/21 18:37 Review of Systems ROS Statement: Those systems with pertinent positive or pertinent negative responses have been documented in the HPI. ROS Other: All systems not noted in ROS Statement are negative. Past Medical History Additional Past Medical History / Comment(s): Patient has seziure in the past due to ETOH detox. Had a seizure approx 1 month ago and was drinking at the time. Colitis and has been admitted in the past for this. History of Any Multi-Drug Resistant Organisms: None Reported Past Surgical History: No Surgical Hx Reported Past Anesthesia/Blood Transfusion Reactions: No Reported Reaction Past Psychological History: Anxiety, Bipolar, Depression Smoking Status: Vaper Past Alcohol Use History: Abuse, Daily Past Drug Use History: None Reported General Exam Limitations: no limitations Course Vital Signs 03/17/21 18:03 Temperature 99.1 F Pulse Rate 111 H Respiratory 18 Rate Blood Pressure 131/90 O2 Sat by Pulse 98 Oximetry Medical Decision Making - Lab Data Result diagrams: 03/17/21 18:41 03/17/21 18:41 Lab Results 03/17/21 03/17/21 Range/Units 18:41 18:41 WBC 6.8 (3.8-10.6) k/uL RBC 4.91 (3.80-5.40) m/uL Hgb 15.1 (11.4-16.0) gm/dL Hct 45.9 (34.0-46.0) % MCV 93.5 (80.0-100.0) fL MCH 30.8 (25.0-35.0) pg MCHC 33.0 (31.0-37.0) g/dL RDW 14.9 (11.5-15.5) % Plt Count 340 (150-450) k/uL MPV 7.5 Neutrophils % 40 % Lymphocytes % 52 % Monocytes % 3 % Eosinophils % 1 % Basophils % 1 % Neutrophils # 2.7 (1.3-7.7) k/uL Lymphocytes # 3.5 (1.0-4.8) k/uL Monocytes # 0.2 (0-1.0) k/uL Eosinophils # 0.1 (0-0.7) k/uL Basophils # 0.1 (0-0.2) k/uL Sodium 137 (137-145) mmol/L Potassium 4.5 (3.5-5.1) mmol/L Chloride 101 (98-107) mmol/L Carbon Dioxide 25 (22-30) mmol/L Anion Gap 11 mmol/L BUN 13 (7-17) mg/dL Creatinine 0.84 (0.52-1.04) mg/dL Est GFR (CKD-EPI)AfAm >90 (>60 ml/min/1.73 sqM) Est GFR (CKD-EPI)NonAf >90 (>60 ml/min/1.73 sqM) Glucose 93 (74-99) mg/dL Calcium 9.3 (8.4-10.2) mg/dL Magnesium 2.0 (1.6-2.3) mg/dL Total Bilirubin 0.6 (0.2-1.3) mg/dL AST 41 H (14-36) U/L ALT 19 (4-34) U/L Alkaline Phosphatase 69 (38-126) U/L Total Protein 7.6 (6.3-8.2) g/dL Albumin 4.4 (3.5-5.0) g/dL Lipase 97 (23-300) U/L Serum Alcohol 163 mg/dL Disposition Clinical Impression: Alcohol abuse, History of seizure due to alcohol withdrawal Disposition: ADMITTED IP TO THIS HOSP Condition: Fair Referrals: Princess Almendarez MD [Primary Care Provider] - 1-2 days
[2021-03-17 18:45] LABS: Basophils # (A) 0.1 k/uL (0-0.2); Basophils % (A) 1 %; Eosinophils # (A) 0.1 k/uL (0-0.7); Eosinophils % (A) 1 %; HCT 45.9 % (34.0-46.0); HGB 15.1 gm/dL (11.4-16.0); Lymphocytes # (A) 3.5 k/uL (1.0-4.8); Lymphocytes % (A) 52 %; MCH 30.8 pg (25.0-35.0); MCV 93.5 fL (80.0-100.0); Mean Platelet Volume 7.5; Monocytes # (A) 0.2 k/uL (0-1.0); Monocytes % (A) 3 %; Neutrophils # (A) 2.7 k/uL (1.3-7.7); Neutrophils % (A) 40 %; Platelet Count 340 k/uL (150-450); RBC 4.91 m/uL (3.80-5.40); RDW 14.9 % (11.5-15.5); WBC 6.8 k/uL (3.8-10.6)
[2021-03-17 18:58] LABS: ALT 19 U/L (4-34); AST 41 U/L (14-36); African American GFR (CKD) >90 (>60 ml/min/1.73 sqM); Albumin 4.4 g/dL (3.5-5.0); Alkaline Phosphatase 69 U/L (38-126); Anion Gap 11 mmol/L; Blood Urea Nitrogen 13 mg/dL (7-17); Calcium 9.3 mg/dL (8.4-10.2); Carbon Dioxide 25 mmol/L (22-30); Chloride 101 mmol/L (98-107); Glucose 93 mg/dL (74-99); Lipase 97 U/L (23-300); Non-African American GFR(CKD) >90 (>60 ml/min/1.73 sqM); Potassium 4.5 mmol/L (3.5-5.1); Sodium 137 mmol/L (137-145); Total Bilirubin 0.6 mg/dL (0.2-1.3); Total Protein 7.6 g/dL (6.3-8.2)
[2021-03-17 19:05] LABS: Alcohol 163 mg/dL
[2021-03-17] MEDS ORDERED: NALOXONE 0.4 MG/ML 1 ML VIAL IV PRN (21:01)
[2021-03-17] MEDS ORDERED: THIAMINE 100 MG/ML 2 ML VIAL IM STA (21:36)
[2021-03-17] MEDS ORDERED: LORazepam 2 MG/ML INJ IV PRN ×2 (21:36)
[2021-03-17 22:27] VITALS: RESP 16
[2021-03-17] MEDS: THIAMINE 100 MG TAB PO SCH (23:46)
[2021-03-17] MEDS: SODIUM CHLORIDE 0.9% 1,000 ML IV SCH (23:48)
[2021-03-18] MEDS: LORazepam 2 MG/ML INJ IV PRN ×4 (01:04→20:17)
--- NOTE | 2021-03-18 10:29 | P.HPIM ---
History of Present Illness Patient with 30-year-old female admitted for alcohol withdrawals. Patient the drinks about 1 pint of hard liquor everyday last sober was about 6 weeks ago. Patient has drink was yesterday morning. Patient evidently had alcohol wit hdrawal seizures in the past although patient labs and MCV is not consistent with the significant chronic alcoholism. Patient denied any fever chills patient feels clammy and feels like she is having withdrawals. Patient avidly complained about hallucinations because of which patient was given Ativan today morning otherwise objectively patient doesn't have any withdrawal symptoms at this time. REVIEW OF SYSTEMS: CONSTITUTIONAL: No fever, no malaise, no fatigue. HEENT: No recent visual problems or hearing problems. Denied any sore throat. CARDIOVASCULAR: No chest pain, orthopnea, PND, no palpitations, no syncope. PULMONARY: No shortness of breath, no cough, no hemoptysis. GASTROINTESTINAL: No diarrhea, no nausea, no vomiting, no abdominal pain. NEUROLOGICAL: No headaches, no weakness, no numbness. HEMATOLOGICAL: Denies any bleeding or petechiae. GENITOURINARY: Denies any burning micturition, frequency, or urgency. MUSCULOSKELETAL/RHEUMATOLOGICAL: Denies any joint pain, swelling, or any muscle pain. ENDOCRINE: Denies any polyuria or polydipsia. The rest of the 14-point review of systems is negative. PHYSICAL EXAMINATION: GENERAL: The patient is alert and oriented x3, not in any acute distress. Well developed, well nourished. HEENT: Pupils are round and equally reacting to light. EOMI. No scleral icterus. No conjunctival pallor. Normocephalic, atraumatic. No pharyngeal erythema. No thyromegaly. CARDIOVASCULAR: S1 and S2 present. No murmurs, rubs, or gallops. PULMONARY: Chest is clear to auscultation, no wheezing or crackles. ABDOMEN: Soft, nontender, nondistended, normoactive bowel sounds. No palpable organomegaly. MUSCULOSKELETAL: No joint swelling or deformity. EXTREMITIES: No cyanosis, clubbing, or pedal edema. NEUROLOGICAL: Gross neurological examination did not reveal any focal deficits. SKIN: No rashes. Assessment and plan -Alcohol abuse: Counseling was provided and patient the is going to go to alcohol rehabitation program after discharge. -Alcohol withdrawal: Patient is presently on Ativan CIWA protocol, do not be expected significant withdrawals in her is that of her history of alcohol withdrawal seizures. Patient will be monitored overnight if he doesn't have any significant withdrawals patient will be discharged tomorrow -Depression/anxiety disorder and patient will be continued on Desvenlafaxine. Tramadol will be discontinued with concern of seizures secondary to withdrawals. -Bipolar disorder for which patient is on lithium which will be continued DVT prophylaxis: Early ambulation Past Medical History Additional Past Medical History / Comment(s): Patient has seziure in the past due to ETOH detox. Had a seizure approx 1 month ago and was drinking at the time. Colitis and has been admitted in the past for this. History of Any Multi-Drug Resistant Organisms: None Reported Past Surgical History: No Surgical Hx Reported Past Anesthesia/Blood Transfusion Reactions: No Reported Reaction Past Psychological History: Anxiety, Bipolar, Depression Smoking Status: Vaper Past Alcohol Use History: Abuse, Daily Past Drug Use History: None Reported Additional Drug Use History / Comment(s): Denies any marijuana or recreational drug use Medications and Allergies Home Medications Medication Instructions Recorded Confirmed Type [employer] Carbonate 600 mg PO HS 02/25/20 03/17/21 History Ondansetron Odt [Zofran Odt] 4 mg PO Q8HR PRN #20 tab 02/26/21 03/17/21 Rx Atomoxetine HCl 80 mg PO HS 03/17/21 03/17/21 History Desvenlafaxine Succinate [Pristiq] 100 mg PO HS 03/17/21 03/17/21 History Disulfiram [Antabuse] 250 mg PO DAILY 03/17/21 03/17/21 History cloNIDine HCL 0.2 mg PO HS 03/17/21 03/17/21 History traMADol HCL 50 mg PO DAILY PRN 03/17/21 03/17/21 History Allergies Allergy/AdvReac Type Severity Reaction Status Date / Time codeine Allergy Swelling Verified 03/17/21 18:37 Physical Exam Vitals: Vital Signs Temp Pulse Pulse Resp BP BP Pulse Ox 03/18/21 04:27 98.1 F 85 16 123/82 99 03/18/21 01:45 98.2 F 91 16 119/81 98 03/17/21 23:50 88 16 124/94 100 03/17/21 22:26 88 16 130/85 100 03/17/21 18:03 99.1 F 111 H 18 131/90 98 Intake and Output 03/17/21 03/18/21 03/18/21 22:59 06:59 14:59 Intake Total 120 Balance 120 Intake: Intake, IV Titration 120 Amount Sodium Chloride 0.9% 1, 120 000 ml @ 20 mls/hr IV . Q24H MARICEL Rx#:[id number] Other: Weight 65.771 kg 65.771 kg Results CBC & Chem 7: 03/17/21 18:41 03/17/21 18:41 Labs: Abnormal Lab Results - Last 24 Hours (Table) 03/17/21 Range/Units 18:41 AST 41 H (14-36) U/L Thrombosis Risk Factor Assmnt - Choose All That Apply Any of the Below Risk Factors Present?: Yes Each Factor Represents 1 point: Obesity (BMI >25) Other Risk Factors: No Other congenital or acquired thrombophilia - If yes, enter type in comment: No Thrombosis Risk Factor Assessment Total Risk Factor Score: 1 Thrombosis Risk Factor Assessment Level: Low Risk
[2021-03-18] MEDS: ACETAMINOPHEN TAB 325 MG TAB PO PRN ×2 (12:03→20:38)
[2021-03-18] MEDS: ONDANSETRON ODT 4 MG TAB PO PRN (12:04)
[2021-03-18] MEDS: THIAMINE 100 MG TAB PO SCH (17:30)
[2021-03-18] MEDS ORDERED: LITHIUM CARBONATE 300 MG CAP PO SCH (21:00)
[2021-03-18] MEDS ORDERED: DESVENLAFAXINE SUCCINATE 50 MG TAB.ER.24H PO SCH (21:00)
[2021-03-19] MEDS: SODIUM CHLORIDE 0.9% 1,000 ML IV SCH (00:23)
[2021-03-19 04:22] VITALS: BP 127/86; PULSE 86; TEMP 97.6
--- NOTE | 2021-03-19 08:39 | P.DS ---
Providers Date of admission: 03/17/21 21:01 Attending physician: Mukund Moody Primary care physician: [facility] Course: Patient with 30-year-old female admitted for alcohol withdrawals. Patient the drinks about 1 pint of hard liquor everyday last sober was about 6 weeks ago. Patient has drink was yesterday morning. Patient evidently had alcohol withdrawal seizures in the past although patient labs and MCV is not consistent with the significant chronic alcoholism. Patient denied any fever chills patient feels clammy and feels like she is having withdrawals. Patient avidly complained about hallucinations because of which patient was given Ativan today morning otherwise objectively patient doesn't have any withdrawal symptoms at this time. 03/19/2020 Patient doesn't have any significant withdrawals patient will be discharged today please refer to social work documentation regarding her disposition. PHYSICAL EXAMINATION: GENERAL: The patient is alert and oriented x3, not in any acute distress. Well developed, well nourished. HEENT: Pupils are round and equally reacting to light. EOMI. No scleral icterus. No conjunctival pallor. Normocephalic, atraumatic. No pharyngeal erythema. No thyromegaly. CARDIOVASCULAR: S1 and S2 present. No murmurs, rubs, or gallops. PULMONARY: Chest is clear to auscultation, no wheezing or crackles. ABDOMEN: Soft, nontender, nondistended, normoactive bowel sounds. No palpable organomegaly. MUSCULOSKELETAL: No joint swelling or deformity. EXTREMITIES: No cyanosis, clubbing, or pedal edema. NEUROLOGICAL: Gross neurological examination did not reveal any focal deficits. SKIN: No rashes. Assessment and plan -Alcohol abuse: Counseling was provided and patient the is going to go to alcohol rehabitation program after discharge. -Alcohol withdrawal: Patient is presently on Ativan CIWA protocol,no withdrawls -Depression/anxiety disorder and patient will be continued on Desvenlafaxine. Tramadol will be discontinued with concern of seizures secondary to withdrawals. -Bipolar disorder for which patient is on lithium which will be continued Patient Condition at Discharge: Fair Plan - Discharge Summary New Discharge Prescriptions: Discontinued Disulfiram [Antabuse] 250 mg PO DAILY cloNIDine HCL 0.2 mg PO HS traMADol HCL 50 mg PO DAILY PRN PRN Reason: Pain No Action [place] Carbonate 600 mg PO HS Ondansetron Odt [Zofran Odt] 4 mg PO Q8HR PRN #20 tab PRN Reason: Vomiting Atomoxetine HCl 80 mg PO HS Desvenlafaxine Succinate [Pristiq] 100 mg PO HS Discharge Medication List [address] Carbonate 600 mg PO HS 02/25/20 [History] Ondansetron Odt [Zofran Odt] 4 mg PO Q8HR PRN #20 tab 02/26/21 [Rx] Atomoxetine HCl 80 mg PO HS 03/17/21 [History] Desvenlafaxine Succinate [Pristiq] 100 mg PO HS 03/17/21 [History] Follow up Appointment(s)/Referral(s): Princess Almendarez MD [Primary Care Provider] - 3 Days Discharge Disposition: OTHER INSTITUTION NOT DEFINED
[2021-03-19] MEDS: ONDANSETRON ODT 4 MG TAB PO PRN (09:16)
[2021-03-19] MEDS: THIAMINE 100 MG TAB PO SCH (09:16)
[2021-03-19] MEDS: ACETAMINOPHEN TAB 325 MG TAB PO PRN (09:18)
== END 2021-03-19 11:35 | disposition other institution (70) | DRG 897 ==
LOC: EC 18:02 → 5NMEDONC 21:01
PROVIDERS: ADMIT Hospitalist; ATTEND Hospitalist
PROC: HZ2ZZZZ Detoxification Services for Substance Abuse Treatment (ICD-10-PCS; principal; 2021-03-17)
DX: F10.239 Alcohol dependence with withdrawal, unspecified (principal); F31.9 Bipolar disorder, unspecified; R56.9 Unspecified convulsions; Z20.822 Contact with and (suspected) exposure to COVID-19; F41.9 Anxiety disorder, unspecified; G47.00 Insomnia, unspecified; Y90.6 Blood alcohol level of 120-199 mg/100 ml; Z88.5 Allergy status to narcotic agent; Z71.41 Alcohol abuse counseling and surveillance of alcoholic
CPT/HCPCS: 36415; 80053; 80320; 81025; 83690; 83735; 85025; 87635; 93005; 96360; 99285

== ENCOUNTER 2021-04-16 06:40 | Emergency (ER) | payer OTHER ==
[2021-04-16] MEDS ORDERED: LORazepam 2 MG/ML INJ IV STA (07:12)
[2021-04-16] MEDS ORDERED: SODIUM CHLORIDE 0.9% 1,000 ML IV STA (07:12)
--- NOTE | 2021-04-16 07:21 | ED ---
General Adult HPI - General Chief complaint: Alcohol Stated complaint: Withdrawal Time Seen by Provider: 04/16/21 06:49 Source: patient, RN notes reviewed Mode of arrival: ambulatory - History of Present Illness Initial comments: 30-year-old female with a past medical history of chronic alcoholism presents to the emergency room for alcohol withdrawal. Patient states that she drinks about a fifth of vodka per day. Last drink was 2 PM yesterday. Patient apparently had alcohol withdrawal seizure in the past. Patient did go to [place] last year but relapsed after 2 weeks. Patient states that since 11:30 last night she has felt anxious about withdrawing and wanted to be evaluated.Patient has no other complaints at this time including shortness of breath, chest pain, abdominal pain, nausea or vomiting, headache, or visual changes. - Related Data Home Medications Medication Instructions Recorded Confirmed [place] Carbonate 600 mg PO HS 02/25/20 03/17/21 Atomoxetine HCl 80 mg PO HS 03/17/21 03/17/21 Desvenlafaxine Succinate [Pristiq] 100 mg PO HS 03/17/21 03/17/21 Previous Rx's Medication Instructions Recorded Ondansetron Odt [Zofran Odt] 4 mg PO Q8HR PRN #20 tab 02/26/21 ALPRAZolam [Xanax] 0.5 mg PO TID PRN #6 tablet 04/16/21 Allergies Allergy/AdvReac Type Severity Reaction Status Date / Time codeine Allergy Swelling Verified 04/16/21 06:47 Review of Systems ROS Statement: Those systems with pertinent positive or pertinent negative responses have been documented in the HPI. ROS Other: All systems not noted in ROS Statement are negative. Past Medical History Past Medical History: Seizure Disorder Additional Past Medical History / Comment(s): Patient has seziure in the past due to ETOH detox. Had a seizure approx 1 month ago and was drinking at the time. Colitis and has been admitted in the past for this. History of Any Multi-Drug Resistant Organisms: None Reported Past Surgical History: No Surgical Hx Reported Past Anesthesia/Blood Transfusion Reactions: No Reported Reaction Past Psychological History: Anxiety, Bipolar, Depression Smoking Status: Vaper Past Alcohol Use History: Abuse, Daily Past Drug Use History: None Reported General Exam General appearance: alert, in no apparent distress Head exam: Present: atraumatic Eye exam: Present: normal appearance, PERRL, EOMI. Absent: scleral icterus, conjunctival injection ENT exam: Present: normal exam, mucous membranes moist Neck exam: Present: normal inspection, full ROM. Absent: tenderness Respiratory exam: Present: normal lung sounds bilaterally. Absent: respiratory distress, wheezes Cardiovascular Exam: Present: regular rate, normal rhythm, normal heart sounds GI/Abdominal exam: Present: soft, normal bowel sounds. Absent: distended, tend erness Course Vital Signs 04/16/21 04/16/21 06:42 08:17 Temperature 97.9 F Pulse Rate 115 H 102 H Respiratory 20 18 Rate Blood Pressure 144/85 126/83 O2 Sat by Pulse 98 100 Oximetry Medical Decision Making - Medical Decision Making Vitals are stable. Patient is well-appearing. Laboratory evaluation unremarkable. Magnesium normal. Alcohol is negative. Patient w had maybe a slight tremor on arrival. No vomiting. She was given 1 mg of Ativan. On reevaluation she is not having any tremors whatsoever. She is sleeping. No diaphoresis. At the same patient is stable for outpatient management. We will start her on some Ativan at home. She will return here for any worsening symptoms. - Lab Data Result diagrams: 04/16/21 07:32 04/16/21 07:32 Lab Results 04/16/21 04/16/21 Range/Units 07:32 07:32 WBC 7.5 (3.8-10.6) k/uL RBC 4.50 (3.80-5.40) m/uL Hgb 14.4 (11.4-16.0) gm/dL Hct 42.9 (34.0-46.0) % MCV 95.3 (80.0-100.0) fL MCH 32.1 (25.0-35.0) pg MCHC 33.7 (31.0-37.0) g/dL RDW 14.6 (11.5-15.5) % Plt Count 230 (150-450) k/uL MPV 8.3 Neutrophils % 52 % Lymphocytes % 41 % Monocytes % 5 % Eosinophils % 1 % Basophils % 1 % Neutrophils # 3.9 (1.3-7.7) k/uL Lymphocytes # 3.0 (1.0-4.8) k/uL Monocytes # 0.3 (0-1.0) k/uL Eosinophils # 0.1 (0-0.7) k/uL Basophils # 0.1 (0-0.2) k/uL Sodium 131 L (137-145) mmol/L Potassium 4.2 (3.5-5.1) mmol/L Chloride 94 L (98-107) mmol/L Carbon Dioxide 22 (22-30) mmol/L Anion Gap 15 mmol/L BUN 15 (7-17) mg/dL Creatinine 0.73 (0.52-1.04) mg/dL Est GFR (CKD-EPI)AfAm >90 (>60 ml/min/1.73 sqM) Est GFR (CKD-EPI)NonAf >90 (>60 ml/min/1.73 sqM) Glucose 78 (74-99) mg/dL Calcium 9.3 (8.4-10.2) mg/dL Magnesium 2.3 (1.6-2.3) mg/dL Total Bilirubin 1.2 (0.2-1.3) mg/dL AST 87 H (14-36) U/L ALT 37 H (4-34) U/L Alkaline Phosphatase 82 (38-126) U/L Total Protein 7.8 (6.3-8.2) g/dL Albumin 4.6 (3.5-5.0) g/dL Serum Alcohol <10 mg/dL Disposition Clinical Impression: Chronic alcohol abuse, Alcohol withdrawal syndrome Disposition: HOME SELF-CARE Condition: Good Instructions (If sedation given, give patient instructions): Alcohol Withdrawal (ED) Additional Instructions: Please take Xanax today. Follow-up with your doctor. Return to the emergency room for any worsening symptoms. Is patient prescribed a controlled substance at d/c from ED?: No Referrals: Princess Almendarez MD [Primary Care Provider] - 1-2 days Time of Disposition: 09:42
[2021-04-16 07:46] LABS: Basophils # (A) 0.1 k/uL (0-0.2); Basophils % (A) 1 %; Eosinophils # (A) 0.1 k/uL (0-0.7); Eosinophils % (A) 1 %; HCT 42.9 % (34.0-46.0); HGB 14.4 gm/dL (11.4-16.0); Lymphocytes % (A) 41 %; MCH 32.1 pg (25.0-35.0); MCHC 33.7 g/dL (31.0-37.0); MCV 95.3 fL (80.0-100.0); Mean Platelet Volume 8.3; Monocytes # (A) 0.3 k/uL (0-1.0); Monocytes % (A) 5 %; Neutrophils # (A) 3.9 k/uL (1.3-7.7); Neutrophils % (A) 52 %; Platelet Count 230 k/uL (150-450); RDW 14.6 % (11.5-15.5); WBC 7.5 k/uL (3.8-10.6)
[2021-04-16 08:04] LABS: ALT 37 U/L (4-34); AST 87 U/L (14-36); African American GFR (CKD) >90 (>60 ml/min/1.73 sqM); Albumin 4.6 g/dL (3.5-5.0); Alcohol <10 mg/dL; Alkaline Phosphatase 82 U/L (38-126); Anion Gap 15 mmol/L; Blood Urea Nitrogen 15 mg/dL (7-17); Calcium 9.3 mg/dL (8.4-10.2); Carbon Dioxide 22 mmol/L (22-30); Chloride 94 mmol/L (98-107); Glucose 78 mg/dL (74-99); Magnesium 2.3 mg/dL (1.6-2.3); Non-African American GFR(CKD) >90 (>60 ml/min/1.73 sqM); Potassium 4.2 mmol/L (3.5-5.1); Sodium 131 mmol/L (137-145); Total Bilirubin 1.2 mg/dL (0.2-1.3); Total Protein 7.8 g/dL (6.3-8.2)
[2021-04-16 08:17] VITALS: RESP 18
[2021-04-16 10:04] VITALS: BP 133/87; PULSE 96; TEMP 98.5
== END 2021-04-16 10:04 | disposition home or self-care (01) ==
LOC: EC 06:40
DX: F10.239 Alcohol dependence with withdrawal, unspecified (principal); F41.9 Anxiety disorder, unspecified; F31.9 Bipolar disorder, unspecified; F17.290 Nicotine dependence, other tobacco product, uncomplicated; Z88.5 Allergy status to narcotic agent; Y90.0 Blood alcohol level of less than 20 mg/100 ml
CPT/HCPCS: 99284; 96374; 96361; 36415; 80053; 83735; 85025; G0480; J2060; 80320

== ENCOUNTER → 2021-10-31 | Outpatient (CLI) | payer OTHER ==
[2021-10-31 18:18] LABS: C Reactive Protein <0.30 mg/dL (0.00-0.80); Rheumatoid Factor, Qnt <10 IU/mL (0-15)
== END | disposition home or self-care (01) ==
LOC: LABWHC1 12:31
PROVIDERS: ATTEND Psychiatry & Neurology Neurology
DX: M25.9 Joint disorder, unspecified (principal)
CPT/HCPCS: 36415; 85652; 86038; 86140; 86431

== ENCOUNTER 2022-11-20 20:58 | Observation (INO) | payer OTHER ==
--- NOTE | 2022-11-20 21:12 | ED ---
General Adult HPI - General Stated complaint: Alcohol Detox Time Seen by Provider: 11/20/22 21:10 Source: patient, EMS, RN notes reviewed Mode of arrival: EMS Limitations: no limitations - History of Present Illness Initial comments: 32-year-old presents via EMS from [employer] for evaluation of hallucinations. Patient is on day 3 of alcohol detox. Patient states she has visual and auditory hallucinations. Patient denies being suicidal homicidal denies any seizures patient denies any physical complaints. Patient states that hallucinations getting worse. Patient is very tremulous. - Related Data Home Medications Medication Instructions Recorded Confirmed [place] Carbonate 600 mg PO HS 02/25/20 03/17/21 Atomoxetine HCl 80 mg PO HS 03/17/21 03/17/21 Desvenlafaxine Succinate [Pristiq] 100 mg PO HS 03/17/21 03/17/21 Previous Rx's Medication Instructions Recorded Ondansetron Odt [Zofran Odt] 4 mg PO Q8HR PRN #20 tab 02/26/21 ALPRAZolam [Xanax] 0.5 mg PO TID PRN #6 tablet 04/16/21 Allergies Allergy/AdvReac Type Severity Reaction Status Date / Time codeine Allergy Swelling Verified 11/20/22 22:16 Review of Systems ROS Statement: Those systems with pertinent positive or pertinent negative responses have been documented in the HPI. ROS Other: All systems not noted in ROS Statement are negative. Past Medical History Past Medical History: Seizure Disorder Additional Past Medical History / Comment(s): Patient has seziure in the past due to ETOH detox. Had a seizure approx 1 month ago and was drinking at the time. Colitis and has been admitted in the past for this. History of Any Multi-Drug Resistant Organisms: None Reported Past Surgical History: No Surgical Hx Reported Past Anesthesia/Blood Transfusion Reactions: No Reported Reaction Past Psychological History: Anxiety, Bipolar, Depression Smoking Status: Vaper Past Alcohol Use History: Abuse, Daily Past Drug Use History: None Reported General Exam - General Exam Comments Initial Comments: Visual Physical Exam Vital signs reviewed General: Well-appearing, nontoxic, no acute distress. Head: Normocephalic, atraumatic Eyes: PERRLA, EOMI ENT: Airway patent Chest: Nonlabored breathing Skin: No visual rash, normal skin tone Neuro: Alert and oriented 3 Musculoskeletal: No gross abnormalities General appearance: alert, in no apparent distress Head exam: Present: atraumatic, normocephalic, normal inspection Eye exam: Present: normal appearance, PERRL, EOMI. Absent: scleral icterus, conjunctival injection, periorbital swelling ENT exam: Present: normal exam, normal oropharynx, mucous membranes moist Neck exam: Present: normal inspection, full ROM. Absent: tenderness, meningismus, lymphadenopathy Respiratory exam: Present: normal lung sounds bilaterally. Absent: respiratory distress, wheezes, rales, rhonchi, stridor Cardiovascular Exam: Present: normal rhythm, tachycardia, normal heart sounds. Absent: systolic murmur, diastolic murmur, rubs, gallop, clicks GI/Abdominal exam: Present: soft, normal bowel sounds. Absent: distended, tenderness, guarding, rebound, rigid Course Vital Signs 11/20/22 22:16 Temperature 98.1 F Pulse Rate 114 H Respiratory 18 Rate Blood Pressure 118/89 O2 Sat by Pulse 98 Oximetry Medical Decision Making - Medical Decision Making I performed a quick note portion of the signed Maxwell Whittington PA-C Was pt. sent in by a medical professional or institution (GINA Estrada, SENIOR MANAGER ASSET [employer]OTECTION, urgent care, hospital, or half-way...) When possible be specific @ -[employer] Did you speak to anyone other than the patient for history (EMS, parent, family, police, friend...)? What history was obtained from this source @ -No Did you review nursing and triage notes (agree or disagree)? Why? @ -I reviewed and agree with nursing and triage notes Were old charts reviewed (outside hosp., previous admission, EMS record, old EKG, old radiological studies, urgent care reports/EKG's, half-way records)? Report findings @ -No old charts were reviewed Differential Diagnosis (chest pain, altered mental status, abdominal pain women, abdominal pain men, vaginal bleeding, weakness, fever, dyspnea, syncope, headache, dizziness, GI bleed, back pain, seizure, CVA, palpatations, mental health, musculoskeletal)? @ -Alcohol withdrawal, alcohol abuse EKG interpreted by me (3pts min.). @ -None. Alcohol abuse X-rays interpreted by me (1pt min.). @ -None done CT interpreted by me (1pt min.). @ -None done U/S interpreted by me (1pt. min.). @ -None done What testing was considered but not performed or refused? (CT, X-rays, U/S, labs)? Why? @ -None What meds were considered but not given or refused? Why? @ -None Did you discuss the management of the patient with other professionals (professionals i.e. , PA, SENIOR MANAGER [employer], lab, RT, psych nurse, social media sr strategy manager, nursing executive, teacher, forest officer, home health care case manager)? Give summary @ -No Was smoking cessation discussed for >3mins.? @ -No Was critical care preformed (if so, how long)? @ -No Were there social determinants of health that impacted care today? How? (Home lessness, low income, unemployed, alcoholism, drug addiction, transportation, low edu. Level, literacy, decrease access to med. care, detention, rehab)? @ -No Was there de-escalation of care discussed even if they declined (Discuss DNR or withdrawal of care, Hospice)? DNR status @ -No What co-morbidities impacted this encounter? (DM, HTN, Smoking, COPD, CAD, Cancer, CVA, ARF, Chemo, Hep., AIDS, mental health diagnosis, sleep apnea, morbid obesity)? @ -None Was patient admitted / discharged? Hospital course, mention meds given and route, prescriptions, significant lab abnormalities, going to OR and other pertinent info. @ -Admitted patient was sent from [employer] for further evaluation worsening alcohol withdrawal symptoms currently on Ativan. Patient has had seizures in the past. Undiagnosed new problem with uncertain prognosis? @ -No Drug Therapy requiring intensive monitoring for toxicity (Heparin, Nitro, Insulin, Cardizem)? @ -No Were any procedures done? @ -No Diagnosis/symptom? @ -Alcohol withdrawal Acute, or Chronic, or Acute on Chronic? @ -Acute Uncomplicated (without systemic symptoms) or Complicated (systemic symptoms)? @ -[Complicated Side effects of treatment? @ -No Exacerbation, Progression, or Severe Exacerbation? @ -No Poses a threat to life or bodily function? How? (Chest pain, [place], [place], pneumonia, PE, COPD, DKA, ARF, appy, cholecystitis, CVA, Diverticulitis, Homicidal, Suicidal, threat to staff... and all critical care pts) @ -No - Lab Data Result diagrams: 11/20/22 22:39 11/20/22 22:39 Lab Results 11/20/22 11/20/22 Range/Units 22:39 22:39 WBC 3.6 L (3.8-10.6) k/uL RBC 4.11 (3.80-5.40) m/uL Hgb 13.3 (11.4-16.0) gm/dL Hct 41.3 (34.0-46.0) % MCV 100.5 H (80.0-100.0) fL MCH 32.4 (25.0-35.0) pg MCHC 32.3 (31.0-37.0) g/dL RDW 13.0 (11.5-15.5) % Plt Count 146 L (150-450) k/uL MPV 9.3 Neutrophils % 69 % Lymphocytes % 22 % Monocytes % 5 % Eosinophils % 3 % Basophils % 0 % Neutrophils # 2.5 (1.3-7.7) k/uL Lymphocytes # 0.8 L (1.0-4.8) k/uL Monocytes # 0.2 (0-1.0) k/uL Eosinophils # 0.1 (0-0.7) k/uL Basophils # 0.0 (0-0.2) k/uL Sodium 134 L (137-145) mmol/L Potassium 4.1 (3.5-5.1) mmol/L Chloride 98 (98-107) mmol/L Carbon Dioxide 24 (22-30) mmol/L Anion Gap 12 mmol/L BUN 11 (7-17) mg/dL Creatinine 0.80 (0.52-1.04) mg/dL Est GFR (CKD-EPI)AfAm >90 (>60 ml/min/1.73 sqM) Est GFR (CKD-EPI)NonAf >90 (>60 ml/min/1.73 sqM) Glucose 193 H (74-99) mg/dL Calcium 10.0 (8.4-10.2) mg/dL Magnesium 2.3 (1.6-2.3) mg/dL Total Bilirubin 0.7 (0.2-1.3) mg/dL AST 70 H (14-36) U/L ALT 66 H (4-34) U/L Alkaline Phosphatase 57 (38-126) U/L Total Protein 7.7 (6.3-8.2) g/dL Albumin 4.8 (3.5-5.0) g/dL Disposition Clinical Impression: History of seizure due to alcohol withdrawal, Alcohol abuse, Alcohol withdrawal delirium, Alcohol withdrawal syndrome Disposition: ADMITTED IP TO THIS HOSP Condition: Poor Referrals: None,Stated [Primary Care Provider] - 1-2 days Time of Disposition: 02:32
[2022-11-20 22:54] LABS: ALT 66 U/L (4-34); AST 70 U/L (14-36); African American GFR (CKD) >90 (>60 ml/min/1.73 sqM); Albumin 4.8 g/dL (3.5-5.0); Alkaline Phosphatase 57 U/L (38-126); Anion Gap 12 mmol/L; Blood Urea Nitrogen 11 mg/dL (7-17); Carbon Dioxide 24 mmol/L (22-30); Chloride 98 mmol/L (98-107); Glucose 193 mg/dL (74-99); Magnesium 2.3 mg/dL (1.6-2.3); Non-African American GFR(CKD) >90 (>60 ml/min/1.73 sqM); Potassium 4.1 mmol/L (3.5-5.1); Sodium 134 mmol/L (137-145); Total Bilirubin 0.7 mg/dL (0.2-1.3); Total Protein 7.7 g/dL (6.3-8.2)
[2022-11-20 22:56] LABS: Basophils % (A) 0 %; Eosinophils # (A) 0.1 k/uL (0-0.7); Eosinophils % (A) 3 %; HCT 41.3 % (34.0-46.0); HGB 13.3 gm/dL (11.4-16.0); Lymphocytes # (A) 0.8 k/uL (1.0-4.8); Lymphocytes % (A) 22 %; MCH 32.4 pg (25.0-35.0); MCHC 32.3 g/dL (31.0-37.0); MCV 100.5 fL (80.0-100.0); Mean Platelet Volume 9.3; Monocytes # (A) 0.2 k/uL (0-1.0); Monocytes % (A) 5 %; Neutrophils # (A) 2.5 k/uL (1.3-7.7); Neutrophils % (A) 69 %; Platelet Count 146 k/uL (150-450); RBC 4.11 m/uL (3.80-5.40); WBC 3.6 k/uL (3.8-10.6)
[2022-11-21] MEDS ORDERED: LORazepam 1 MG TAB PO STA (01:22)
[2022-11-21] MEDS ORDERED: LORazepam 1 MG TAB PO PRN ×2 (02:19)
[2022-11-21] MEDS ORDERED: LORazepam 2 MG/ML INJ IV PRN (02:19)
[2022-11-21] MEDS ORDERED: ONDANSETRON 4 MG/2 ML VIAL IVP PRN (02:33)
[2022-11-21] MEDS ORDERED: NALOXONE 0.4 MG/ML 1 ML VIAL IV PRN (02:33)
[2022-11-21] MEDS: LORazepam 1 MG TAB PO PRN ×2 (03:45→07:34)
[2022-11-21] MEDS ORDERED: MAG HYDROX/AL HYDROX/SIMETH 30 ML CUP PO PRN (10:26)
[2022-11-21] MEDS ORDERED: CALCIUM PO PRN (10:26)
[2022-11-21] MEDS ORDERED: MAG PO PRN (10:26)
[2022-11-21] MEDS ORDERED: ZINC PO PRN (10:26)
[2022-11-21] MEDS ORDERED: D3 PO PRN (10:26)
[2022-11-21] MEDS ORDERED: LOPERAMIDE 2 MG CAP PO PRN (10:26)
[2022-11-21] MEDS: buPROPion SR 100 MG TABLET.ER PO SCH (11:44)
[2022-11-21] MEDS: THIAMINE 100 MG TAB PO SCH (11:44)
[2022-11-21] MEDS: MULTIVITAMINS, THERA 1 EACH TAB PO SCH (11:44)
[2022-11-21] MEDS: cloNIDine HCL 0.1 MG TAB PO SCH ×2 (11:44→20:35)
[2022-11-21] MEDS: SODIUM CHLORIDE 0.9% 1,000 ML IV SCH ×2 (11:51→20:36)
--- NOTE | 2022-11-21 13:12 | P.HPIM ---
History of Present Illness H&P Date: 11/21/22 Chief Complaint: Hallucinations * 32-year-old lady with past medical history of alcohol use disorder presents from [place] secondary to worsening ordered and visual hallucinations. Patient was noted to be tremulous at the time of presentation in ED. Patient does have past medical history for alcohol withdrawal seizures, history of depression and anxiety as well as bipolar disorder * Workup initiated in ER included hematology which were WBC of 3.6 hemoglobin of 13 hematocrit 41 platelet 146 * Serum chemistry showed sodium of 134 potassium 4.1 be on 11 creatinine 0.8 * Liver profile showed AST 70 ALT 66 * During the encounter patient is alert and oriented 4. Patient does complain of feeling anxious. Denies of any order to visual hallucinations * Patient counseled not to leave AGAINST MEDICAL ADVICE REVIEW OF SYSTEMS: Nervous, anxious CONSTITUTIONAL: No fever, no malaise, no fatigue. HEENT: No recent visual problems or hearing problems. Denied any sore throat. CARDIOVASCULAR: No chest pain, orthopnea, PND, no palpitations, no syncope. PULMONARY: No shortness of breath, no cough, no hemoptysis. GASTROINTESTINAL: No diarrhea, no nausea, no vomiting, no abdominal pain. NEUROLOGICAL: No headaches, no weakness, no numbness. HEMATOLOGICAL: Denies any bleeding or petechiae. GENITOURINARY: Denies any burning micturition, frequency, or urgency. MUSCULOSKELETAL/RHEUMATOLOGICAL: Denies any joint pain, swelling, or any muscle pain. ENDOCRINE: Denies any polyuria or polydipsia. PHYSICAL EXAMINATION: GENERAL: The patient is alert and oriented x3, not in any acute distress. Well developed, well nourished. HEENT: Pupils are round and equally reacting to light. EOMI CARDIOVASCULAR: S1 and S2 present. No murmurs, rubs, or gallops. PULMONARY: Chest is clear to auscultation, no wheezing or crackles. ABDOMEN: Soft, nontender, nondistended, normoactive bowel sounds. MUSCULOSKELETAL: No joint swelling or deformity. EXTREMITIES: No cyanosis, clubbing, or pedal edema. NEUROLOGICAL: Gross neurological examination did not reveal any focal deficits. patient nervous and anxious Past Medical History Past Medical History: Seizure Disorder Additional Past Medical History / Comment(s): Patient has seziure in the past due to ETOH detox. Had a seizure approx 1 month ago and was drinking at the ti me. Colitis and has been admitted in the past for this. History of Any Multi-Drug Resistant Organisms: None Reported Past Surgical History: No Surgical Hx Reported Past Anesthesia/Blood Transfusion Reactions: No Reported Reaction Past Psychological History: Anxiety, Bipolar, Depression Smoking Status: Vaper Past Alcohol Use History: Abuse, Daily Past Drug Use History: None Reported Medications and Allergies Home Medications Medication Instructions Recorded Confirmed Type [place] Carbonate 600 mg PO HS 02/25/20 11/21/22 History Acetaminophen Tab [Tylenol] 650 mg PO Q6H PRN 11/21/22 11/21/22 History Calcium/Mag/Zinc/D3 1 tab PO TID PRN 11/21/22 11/21/22 History Chlorpheniramine Maleate 4 mg PO Q4H PRN 11/21/22 11/21/22 History [Chlor-Trimeton] Ibuprofen [Motrin Ib] 600 mg PO Q6H PRN 11/21/22 11/21/22 History LORazepam [Ativan] 1 - 2 mg PO Q4H PRN 11/21/22 11/21/22 History Loperamide [Imodium] 4 mg PO QID PRN 11/21/22 11/21/22 History Multivitamins, Thera [Multivitamin 1 tab PO DAILY 11/21/22 11/21/22 History (formulary)] Mylanta 30 ml PO Q4H PRN 11/21/22 11/21/22 History QUEtiapine [SEROquel] 50 mg PO HS 11/21/22 11/21/22 History Thiamine [Vitamin B-1] 100 mg PO DAILY 11/21/22 11/21/22 History buPROPion HCL [Wellbutrin SR] 200 mg PO DAILY 11/21/22 11/21/22 History cloNIDine HCL [Catapres] 0.1 mg PO BID 11/21/22 11/21/22 History ondansetron HCL [Zofran] 8 mg PO Q6H PRN 11/21/22 11/21/22 History Allergies Allergy/AdvReac Type Severity Reaction Status Date / Time codeine Allergy Swelling Verified 11/21/22 10:16 Physical Exam Vitals: Vital Signs Temp Pulse Resp BP Pulse Ox 11/21/22 07:35 79 18 123/95 99 11/21/22 04:13 90 18 128/100 99 11/21/22 02:35 98 F 90 16 129/101 99 11/20/22 22:16 98.1 F 114 H 18 118/89 98 Intake and Output 11/20/22 11/21/22 11/21/22 22:59 06:59 14:59 Other: Weight 61.235 kg Results CBC & Chem 7: 11/20/22 22:39 11/20/22 22:39 Labs: Abnormal Lab Results - Last 24 Hours (Table) 11/20/22 11/20/22 Range/Units 22:39 22:39 WBC 3.6 L (3.8-10.6) k/uL MCV 100.5 H (80.0-100.0) fL Plt Count 146 L (150-450) k/uL Lymphocytes # 0.8 L (1.0-4.8) k/uL Sodium 134 L (137-145) mmol/L Glucose 193 H (74-99) mg/dL AST 70 H (14-36) U/L ALT 66 H (4-34) U/L Assessment and Plan Assessment: Assessment and plan Alcohol use disorder with withdrawal Acute hyponatremia Thrombocytopenia History of depression, anxiety bipolar * In regards to alcohol withdrawal continue patient on CIWA protocol, use Ativan as needed, as needed Zofran for nausea continue thiamine and folic acid * In regards to history of depression/anxiety/bipolar continue home medications including lithium, Wellbutrin, Seroquel. Monitor QTC while on these medications * In regards to thrombocytopenia continue to monitor platelet count * In regards to hyponatremia continue with fluid resuscitation * Status is full code
[2022-11-21 14:16] VITALS: RESP 16
[2022-11-21] MEDS: LORazepam 0.5 MG TAB PO PRN (16:45)
[2022-11-21] MEDS: ACETAMINOPHEN TAB 325 MG TAB PO PRN (20:35)
[2022-11-21] MEDS ORDERED: LITHIUM CARBONATE 300 MG CAP PO SCH (21:00)
[2022-11-21] MEDS ORDERED: QUEtiapine 50 MG TAB PO SCH (21:00)
[2022-11-22] MEDS: SODIUM CHLORIDE 0.9% 1,000 ML IV SCH (06:24)
[2022-11-22] MEDS ORDERED: ENOXAPARIN 40 MG/0.4 ML SYRINGE SQ SCH (09:00)
[2022-11-22] MEDS ORDERED: THIAMINE 100 MG TAB PO SCH (09:00)
[2022-11-22] MEDS: THIAMINE 100 MG TAB PO SCH (09:16)
[2022-11-22] MEDS: LORazepam 0.5 MG TAB PO PRN (09:17)
[2022-11-22] MEDS: MULTIVITAMINS, THERA 1 EACH TAB PO SCH (09:17)
[2022-11-22] MEDS: buPROPion SR 100 MG TABLET.ER PO SCH (09:17)
[2022-11-22] MEDS: cloNIDine HCL 0.1 MG TAB PO SCH (09:17)
[2022-11-22 09:27] LABS: Basophils # (A) 0.03 X 10*3/uL (0.00-0.10); Basophils % (A) 0.7 %; Eosinophils # (A) 0.33 X 10*3/uL (0.04-0.35); Eosinophils % (A) 7.8 %; HGB 13.1 d/dL (12.0-15.0); Lymphocytes # (A) 1.63 X 10*3/uL (0.90-5.00); Lymphocytes % (A) 38.5 %; MCH 32.1 pg (27.0-32.0); MCHC 32.8 d/dL (32.0-37.0); Mean Platelet Volume 11.2 FL (9.5-12.2); Monocytes # (A) 0.38 X 10*3/uL (0.20-1.00); NRBC Per 100 WBC 0 X 10*3/uL (0.00-0.01); Neutrophils # (A) 1.84 X 10*3/uL (1.80-7.70); Neutrophils % (A) 43.5 %; Platelet Count 161 X 10*3/uL (140-440); RBC 4.08 X 10*6/uL (4.10-5.20); RDW 12.7 % (11.5-14.5); WBC 4.23 X 10*3/uL (4.50-10.00)
[2022-11-22 09:33] LABS: ALT 50 U/L (8-44); AST 51 U/L (13-35); Albumin 4.2 d/dL (3.8-4.9); Albumin/Globulin Ratio 1.75 Ratio (1.60-3.17); Alkaline Phosphatase 55 U/L (41-126); BUN/Creat Ratio 10.57 Ratio (12.00-20.00); Blood Urea Nitrogen 7.4 mg/dL (9.0-27.0); Calcium 9.7 mg/dL (8.7-10.3); Carbon Dioxide 23.2 mmol/L (21.6-31.8); Chloride 105 mmol/L (96-109); Globulin 2.4 d/dL (1.6-3.3); Glucose 85 mg/dL (70-110); Potassium 4.7 mmol/L (3.5-5.5); Sodium 138 mmol/L (135-145); Total Bilirubin 0.5 mg/dL (0.3-1.2); Total Protein 6.6 d/dL (6.2-8.2)
--- NOTE | 2022-11-22 13:27 | P.DS ---
Providers Date of admission: 11/21/22 02:40 Expected date of discharge: 11/22/22 Attending physician: Mukund Moody Primary care physician: Stated None Hospital Course: Discharge diagnoses; Alcohol use disorder with withdrawal Acute hyponatremia Thrombocytopenia History of depression, anxiety bipolar Hospital course; 32-year-old lady with past medical history of alcohol use disorder presents from [place] secondary to worsening ordered and visual hallucinations. Patient was noted to be tremulous at the time of presentation in ED. Patient does have past medical history for alcohol withdrawal seizures, history of depression and anxiety as well as bipolar disorder Workup initiated in ER included hematology which were WBC of 3.6 hemoglobin of 13 hematocrit 41 platelet 146 Serum chemistry showed sodium of 134 potassium 4.1 be on 11 creatinine 0.8 Liver profile showed AST 70 ALT 66 During the encounter patient is alert and oriented 4. Patient does complain of feeling anxious. Denies of any order to visual hallucinations Patient counseled not to leave AGAINST MEDICAL ADVICE 11/22. Patient seen and examined. Patient CIWA scores have been low. Being discharged [place] in stable condition PHYSICAL EXAMINATION: GENERAL: The patient is alert and oriented x3, not in any acute distress. Well developed, well nourished. HEENT: Pupils are round and equally reacting to light. EOMI. No scleral icterus. No conjunctival pallor. Normocephalic, atraumatic. No pharyngeal erythema. No thyromegaly. CARDIOVASCULAR: S1 and S2 present. No murmurs, rubs, or gallops. PULMONARY: Chest is clear to auscultation, no wheezing or crackles. ABDOMEN: Soft, nontender, nondistended, normoactive bowel sounds. No palpable organomegaly. MUSCULOSKELETAL: No joint swelling or deformity. EXTREMITIES: No cyanosis, clubbing, or pedal edema. NEUROLOGICAL: Gross neurological examination did not reveal any focal deficits. SKIN: No rashes. Dictation was produced using [employer] dictation software. please excuse any grammatical, word or spelling errors. Patient Condition at Discharge: Good Plan - Discharge Summary New Discharge Prescriptions: Continue [place] Carbonate 600 mg PO HS QUEtiapine [SEROquel] 50 mg PO HS ondansetron HCL [Zofran] 8 mg PO Q6H PRN PRN Reason: Nausea Multivitamins, Thera [Multivitamin (formulary)] 1 tab PO DAILY Mylanta 30 ml PO Q4H PRN PRN Reason: Gi Upset Calcium/Mag/Zinc/D3 1 tab PO TID PRN PRN Reason: cramps cloNIDine HCL [Catapres] 0.1 mg PO BID Thiamine [Vitamin B-1] 100 mg PO DAILY Acetaminophen Tab [Tylenol] 650 mg PO Q6H PRN PRN Reason: Pain Or Fever > 100.5 Ibuprofen [Motrin Ib] 600 mg PO Q6H PRN PRN Reason: Pain Loperamide [Imodium] 4 mg PO QID PRN PRN Reason: Diarrhea Chlorpheniramine Maleate [Chlor-Trimeton] 4 mg PO Q4H PRN PRN Reason: Allergy Symptoms LORazepam [Ativan] 1 - 2 mg PO Q4H PRN PRN Reason: Anxiety buPROPion HCL [Wellbutrin SR] 200 mg PO DAILY Discharge Medication List [place] Carbonate 600 mg PO HS 02/25/20 [History] Acetaminophen Tab [Tylenol] 650 mg PO Q6H PRN 11/21/22 [History] Calcium/Mag/Zinc/D3 1 tab PO TID PRN 11/21/22 [History] Chlorpheniramine Maleate [Chlor-Trimeton] 4 mg PO Q4H PRN 11/21/22 [History] Ibuprofen [Motrin Ib] 600 mg PO Q6H PRN 11/21/22 [History] LORazepam [Ativan] 1 - 2 mg PO Q4H PRN 11/21/22 [History] Loperamide [Imodium] 4 mg PO QID PRN 11/21/22 [History] Multivitamins, Thera [Multivitamin (formulary)] 1 tab PO DAILY 11/21/22 [History] Mylanta 30 ml PO Q4H PRN 11/21/22 [History] QUEtiapine [SEROquel] 50 mg PO HS 11/21/22 [History] Thiamine [Vitamin B-1] 100 mg PO DAILY 11/21/22 [History] buPROPion HCL [Wellbutrin SR] 200 mg PO DAILY 11/21/22 [History] cloNIDine HCL [Catapres] 0.1 mg PO BID 11/21/22 [History] ondansetron HCL [Zofran] 8 mg PO Q6H PRN 11/21/22 [History] Follow up Appointment(s)/Referral(s): None,Stated [Primary Care Provider] - 1-2 days Discharge Disposition: OTHER INSTITUTION NOT DEFINED
[2022-11-22 14:01] VITALS: BP 131/89; PULSE 75; TEMP 98.6
[2022-11-22] MEDS: ACETAMINOPHEN TAB 325 MG TAB PO PRN (14:59)
== END 2022-11-22 15:15 | disposition home or self-care (01) ==
LOC: EC 20:58 → 6NMEDSUR 11-21 02:40
PROVIDERS: ADMIT Hospitalist; ATTEND Hospitalist
DX: F10.231 Alcohol dependence with withdrawal delirium (principal); E87.1 Hypo-osmolality and hyponatremia; D69.6 Thrombocytopenia, unspecified; F31.9 Bipolar disorder, unspecified; F41.9 Anxiety disorder, unspecified; F17.290 Nicotine dependence, other tobacco product, uncomplicated; Z79.899 Other long term (current) drug therapy; Z88.5 Allergy status to narcotic agent
CPT/HCPCS: 96372; 96374; 99285; 36415; 94760; 80053 ×2; 83735; 85025 ×2; G0378 ×2; S0106 ×2; J2405; J1650

== ENCOUNTER → 2023-02-16 | Outpatient (CLI) | payer OTHER | END | disposition home or self-care (01) | LOC: LABWHC1 14:44 | PROVIDERS: ATTEND Psychiatry & Neurology Neurology | DX: M25.9 Joint disorder, unspecified (principal) | CPT/HCPCS: 36415; 83090; 85652; 86038; 86431 ==

== ENCOUNTER 2023-05-05 19:10 | Emergency (ER) | payer OTHER ==
[2023-05-05 19:26] VITALS: RESP 18
--- NOTE | 2023-05-05 19:39 | ED ---
Seizure HPI - General Chief Complaint: Seizure Stated Complaint: Seizure Time Seen by Provider: 05/05/23 19:12 Source: patient, EMS Mode of arrival: EMS Limitations: no limitations - History of Present Illness Initial Comments: This patient is a 32-year-old woman who arrives by ambulance to have evaluation after she had generalized tonic-clonic seizure. The patient states she had been at a function tonight and then the next and she knew she was being loaded by EMS personnel to their stretcher and brought to the hospital. The patient states she has had previous seizure related to stopping drinking. The last seizure was probably 2 years ago and she is not on any anticonvulsant medication. She has had neurology evaluation previously. Patient states that she does have headache, mainly right-sided and feels like she struck her head. She denies neurologic symptoms. She states there is also some soreness posterior aspect of the neck. MD Complaint: seizure -: minutes(s) Description of Episode: loss of consciousness, tonic-clonic movement -: second(s) Witnessed: yes - by bystander Trauma: Yes Seizure History: history of withdrawal seizures Place: other Possible Precipitating Event: none Associated Symptoms: other (headache) Treatments Prior to Arrival: none - Related Data Home Medications Medication Instructions Recorded Confirmed [place] Carbonate 600 mg PO HS 02/25/20 11/21/22 Acetaminophen Tab [Tylenol] 650 mg PO Q6H PRN 11/21/22 11/21/22 Calcium/Mag/Zinc/D3 1 tab PO TID PRN 11/21/22 11/21/22 Chlorpheniramine Maleate 4 mg PO Q4H PRN 11/21/22 11/21/22 [Chlor-Trimeton] Ibuprofen [Motrin Ib] 600 mg PO Q6H PRN 11/21/22 11/21/22 LORazepam [Ativan] 1 - 2 mg PO Q4H PRN 11/21/22 11/21/22 Loperamide [Imodium] 4 mg PO QID PRN 11/21/22 11/21/22 Multivitamins, Thera [Multivitamin 1 tab PO DAILY 11/21/22 11/21/22 (formulary)] Mylanta 30 ml PO Q4H PRN 11/21/22 11/21/22 QUEtiapine [SEROquel] 50 mg PO HS 11/21/22 11/21/22 Thiamine [Vitamin B-1] 100 mg PO DAILY 11/21/22 11/21/22 buPROPion HCL [Wellbutrin SR] 200 mg PO DAILY 11/21/22 11/21/22 cloNIDine HCL [Catapres] 0.1 mg PO BID 11/21/22 11/21/22 ondansetron HCL [Zofran] 8 mg PO Q6H PRN 11/21/22 11/21/22 Allergies Allergy/AdvReac Type Severity Reaction Status Date / Time codeine Allergy Swelling Verified 05/05/23 19:19 Review of Systems ROS Statement: Those systems with pertinent positive or pertinent negative responses have been documented in the HPI. ROS Other: All systems not noted in ROS Statement are negative. Constitutional: Denies: fever, weakness Eyes: Denies: vision change ENT: Denies: epistaxis Respiratory: Denies: cough, dyspnea Cardiovascular: Denies: chest pain, syncope Gastrointestinal: Denies: abdominal pain, vomiting, diarrhea Genitourinary: Denies: dysuria, hematuria Musculoskeletal: Denies: back pain Skin: Denies: rash Neurological: Reports: headache. Denies: weakness, numbness, paresthesias Hematological/Lymphatic: Denies: easy bleeding Past Medical History Past Medical History: Seizure Disorder Additional Past Medical History / Comment(s): Patient has seziure in the past due to ETOH detox. Had a seizure approx 1 month ago and was drinking at the time . Colitis and has been admitted in the past for this. History of Any Multi-Drug Resistant Organisms: None Reported Past Surgical History: No Surgical Hx Reported Past Anesthesia/Blood Transfusion Reactions: No Reported Reaction Past Psychological History: Anxiety, Bipolar, Depression Smoking Status: Vaper Past Alcohol Use History: Abuse, Daily Past Drug Use History: None Reported General Exam Limitations: no limitations General appearance: alert, in no apparent distress Head exam: Present: other (Tender right parietal area) Eye exam: Present: normal appearance, PERRL, EOMI. Absent: scleral icterus, con junctival injection, nystagmus ENT exam: Present: normal oropharynx Neck exam: Present: normal inspection, tenderness, other (Cervical collar). Absent: meningismus Respiratory exam: Present: normal lung sounds bilaterally. Absent: respiratory distress, wheezes, rales, rhonchi, stridor, accessory muscle use Cardiovascular Exam: Present: normal rhythm, tachycardia, normal heart sounds. Absent: systolic murmur, diastolic murmur, rubs, gallop GI/Abdominal exam: Present: soft. Absent: distended, tenderness, guarding, rebound, rigid, mass Extremities exam: Present: normal inspection, normal capillary refill. Absent: pedal edema, calf tenderness Back exam: Present: normal inspection. Absent: CVA tenderness (R), CVA t enderness (L), vertebral tenderness Neurological exam: Present: alert, oriented X3, CN II-XII intact. Absent: motor sensory deficit Skin exam: Present: warm, dry, intact, normal color. Absent: rash Course Vital Signs 05/05/23 05/05/23 05/05/23 19:14 21:19 22:08 Temperature 96.9 F L 97.0 F L Pulse Rate 124 H 112 H 106 H Respiratory 18 18 18 Rate Blood Pressure 148/103 142/105 151/105 O2 Sat by Pulse 97 97 97 Oximetry Medical Decision Making - Medical Decision Making The patient had CT scan of the brain and cervical spine which I interpreted as negative for acute bony injury and negative for acute intracranial hemorrhage The patient has had generalized tonic-clonic seizure, uncomplicated, with return to baseline. She is feeling well and would like to go home. We discussed the appropriate further care and follow-up as well as neurology consultation. We discussed return parameters. Was pt. sent in by a medical professional or institution ([facility], [employer] AL[employer]ATIONS TAILOR, urgent care, hospital, or care home...) When possible be specific @ -[No] Did you speak to anyone other than the patient for history (EMS, parent, family, police, friend...)? What history was obtained from this source @ -[EMS did give history Did you review nursing and triage notes (agree or disagree)? Why? @ -[I reviewed and agree with nursing and triage notes] Were old charts reviewed (outside hosp., previous admission, EMS record, old EKG , old radiological studies, urgent care reports/EKG's, care home records)? Report findings @ -[No old charts were reviewed] Differential Diagnosis (chest pain, altered mental status, abdominal pain women, abdominal pain men, vaginal bleeding, weakness, fever, dyspnea, syncope, headache, dizziness, GI bleed, back pain, seizure, CVA, palpatations, mental health, musculoskeletal)? @ -[Differential Seizure: Recurrent seizure disorder, febrile seizure, alcohol withdrawal, stimulants, meningitis, encephalitis, intercranial hemorrhage, intracranial tumor, stroke, eclampsia, thyrotoxicosis, hypocalcemia, hyponatremia, hypernatremia, hypomagnesemia, psychogenic, this is not meant to be an all-inclusive list. EKG interpreted by me (3pts min.). @ -[As above] X-rays interpreted by me (1pt min.). @ -[None done] CT interpreted by me (1pt min.). @ -[I interpreted as above U/S interpreted by me (1pt. min.). @ -[None done] What testing was considered but not performed or refused? (CT, X-rays, U/S, labs)? Why? @ -[None] What meds were considered but not given or refused? Why? @ -[None] Did you discuss the management of the patient with other professionals (professionals i.e. , PA, HAND ALTERATIONS TAILOR, lab, RT, psych nurse, social service agency director, news production assistant, teacher, mechanical engineering officer, telephonic nurse case manager)? Give summary @ -[No] Was smoking cessation discussed for >3mins.? @ -[No] Was critical care preformed (if so, how long)? @ -[No] Were there social determinants of health that impacted care today? How? (Homele ssness, low income, unemployed, alcoholism, drug addiction, transportation, low edu. Level, literacy, decrease access to med. care, nursing home, rehab)? @ -[No] Was there de-escalation of care discussed even if they declined (Discuss DNR or withdrawal of care, Hospice)? DNR status @ -[No] What co-morbidities impacted this encounter? (DM, HTN, Smoking, COPD, CAD, Cancer, CVA, ARF, Chemo, Hep., AIDS, mental health diagnosis, sleep apnea, morbid obesity)? @ -[None] Was patient admitted / discharged? Hospital course, mention meds given and route, prescriptions, significant lab abnormalities, going to OR and other pertinent info. @ -[As above Undiagnosed new problem with uncertain prognosis? @ -[No] Drug Therapy requiring intensive monitoring for toxicity (Heparin, Nitro, Insulin, Cardizem)? @ -[No] Were any procedures done? @ -[No] Diagnosis/symptom? @ -[Acute generalized tonic-clonic seizure Acute, or Chronic, or Acute on Chronic? @ -[Acute Uncomplicated (without systemic symptoms) or Complicated (systemic symptoms)? @ -[Uncomplicated Side effects of treatment? @ -[No] Exacerbation, Progression, or Severe Exacerbation? @ -[No] Poses a threat to life or bodily function? How? (Chest pain, [place], [place], pneumonia, PE, COPD, DKA, ARF, appy, cholecystitis, CVA, Diverticulitis, Homicidal, Suicidal, threat to staff... and all critical care pts) @ -[No] - Lab Data Result diagrams: 05/05/23 19:33 05/05/23 19:33 Lab Results 05/05/23 05/05/23 05/05/23 Range/Units 19:33 19:33 20:40 WBC 11.7 H (3.8-10.6) k/uL RBC 3.80 (3.80-5.40) m/uL Hgb 12.1 (11.4-16.0) gm/dL Hct 38.0 (34.0-46.0) % MCV 100.1 H (80.0-100.0) fL MCH 31.9 (25.0-35.0) pg MCHC 31.9 (31.0-37.0) g/dL RDW 11.7 (11.5-15.5) % Plt Count 338 (150-450) k/uL MPV 7.7 Neutrophils % 66 % Lymphocytes % 25 % Monocytes % 5 % Eosinophils % 2 % Basophils % 1 % Neutrophils # 7.7 (1.3-7.7) k/uL Lymphocytes # 2.9 (1.0-4.8) k/uL Monocytes # 0.6 (0-1.0) k/uL Eosinophils # 0.3 (0-0.7) k/uL Basophils # 0.1 (0-0.2) k/uL Sodium 132 L (137-145) mmol/L Potassium 3.8 (3.5-5.1) mmol/L Chloride 102 (98-107) mmol/L Carbon Dioxide 19 L (22-30) mmol/L Anion Gap 11 mmol/L BUN 5 L (7-17) mg/dL Creatinine 0.73 (0.52-1.04) mg/dL Est GFR (CKD-EPI)AfAm >90 (>60 ml/min/1.73 sqM) Est GFR (CKD-EPI)NonAf >90 (>60 ml/min/1.73 sqM) Glucose 98 (74-99) mg/dL Calcium 9.1 (8.4-10.2) mg/dL Total Bilirubin 0.4 (0.2-1.3) mg/dL AST 27 (14-36) U/L ALT 18 (4-34) U/L Alkaline Phosphatase 41 (38-126) U/L Total Protein 7.1 (6.3-8.2) g/dL Albumin 4.4 (3.5-5.0) g/dL Urine HCG, Qual Not Detected (Not Detectd) [place] 0.5 mmol/L Serum Alcohol <10 mg/dL Disposition Clinical Impression: Seizure Disposition: HOME SELF-CARE Condition: Good Instructions (If sedation given, give patient instructions): Seizure/Epilepsy Discharge Instructions & Follow-Up, Recurrent Seizures in Adults (ED) Is patient prescribed a controlled substance at d/c from ED?: No Referrals: None,Stated [Primary Care Provider] - 1-2 days Aracelis Kessler MD [REFERRING] - 1-2 days
[2023-05-05 19:42] LABS: Basophils # (A) 0.1 k/uL (0-0.2); Basophils % (A) 1 %; Eosinophils # (A) 0.3 k/uL (0-0.7); Eosinophils % (A) 2 %; HGB 12.1 gm/dL (11.4-16.0); Lymphocytes # (A) 2.9 k/uL (1.0-4.8); Lymphocytes % (A) 25 %; MCH 31.9 pg (25.0-35.0); MCHC 31.9 g/dL (31.0-37.0); MCV 100.1 fL (80.0-100.0); Mean Platelet Volume 7.7; Monocytes # (A) 0.6 k/uL (0-1.0); Monocytes % (A) 5 %; Neutrophils # (A) 7.7 k/uL (1.3-7.7); Neutrophils % (A) 66 %; Platelet Count 338 k/uL (150-450); RDW 11.7 % (11.5-15.5); WBC 11.7 k/uL (3.8-10.6)
[2023-05-05 19:53] LABS: ALT 18 U/L (4-34); AST 27 U/L (14-36); African American GFR (CKD) >90 (>60 ml/min/1.73 sqM); Albumin 4.4 g/dL (3.5-5.0); Alcohol <10 mg/dL; Alkaline Phosphatase 41 U/L (38-126); Anion Gap 11 mmol/L; Blood Urea Nitrogen 5 mg/dL (7-17); Calcium 9.1 mg/dL (8.4-10.2); Carbon Dioxide 19 mmol/L (22-30); Chloride 102 mmol/L (98-107); Glucose 98 mg/dL (74-99); Non-African American GFR(CKD) >90 (>60 ml/min/1.73 sqM); Potassium 3.8 mmol/L (3.5-5.1); Sodium 132 mmol/L (137-145); Total Bilirubin 0.4 mg/dL (0.2-1.3); Total Protein 7.1 g/dL (6.3-8.2)
[2023-05-05 19:59] LABS: Lithium 0.5 mmol/L
--- NOTE | 2023-05-05 20:10 | CT ---
EXAMINATION TYPE: CT brain cspine wo con CT DLP: 1250.9 mGycm, Automated exposure control for dose reduction was used. DATE OF EXAM: 05/05/2023 8:03 PM COMPARISON: None. CLINICAL INDICATION:Female, 32 years old with history of fall injury; Seizure, fall from standing. Ne ck pain. TECHNIQUE: Brain: Multiple axial CT images of the brain were obtained without IV contrast. Cspine: Axial CT images from the skull base to the inferior aspect of T2 we obtained without intraven ous contrast. Coronal and sagittal reformatted images were also reviewed. FINDINGS: Brain: Extra-axial spaces: No abnormal extra-axial fluid collections. Ventricular system: Within normal limits Cerebral parenchyma: No acute intraparenchymal hemorrhage or mass effect. The galvan-white junction is well differentiated. Cerebellum: Unremarkable. Mass effect: No evidence of midline shift. Intracranial vasculature: unremarkable Soft tissues: Normal. Calvarium/osseous structures: No depressed skull fracture. Paranasal sinuses and mastoid air cells: Clear. Visualized orbits: Orbital contents are intact. Cervical spine: Fracture: None. Osseous structures: Unremarkable Vertebral alignment: Mild straightening of the normal cervical lordotic curve, likely related to holley ent positioning. Spinal canal/Neural Foramina: No evidence of significant spinal canal narrowing. No evidence for sign ificant neural foraminal stenosis. Neck soft tissues: Prevertebral soft tissues are within normal limits. Other: The airway is patent. The lung apices are clear. IMPRESSION: CT brain: No acute intracranial process. CT cervical spine: No evidence of cervical spine fracture.
[2023-05-05] MEDS: SODIUM CHLORIDE 0.9% 500 ML 500 ML IV STA (20:41)
[2023-05-05 22:52] VITALS: BP 151/105; PULSE 106; TEMP 97
== END 2023-05-05 22:08 | disposition home or self-care (01) ==
LOC: EC 19:10
DX: G40.409 Other generalized epilepsy and epileptic syndromes, not intractable, without status epilepticus (principal); F17.290 Nicotine dependence, other tobacco product, uncomplicated; Z88.5 Allergy status to narcotic agent
CPT/HCPCS: 36415; 80053; 80178; 85025; 81025; 72125; 70450; 99285; G0480; 80320

== ENCOUNTER → 2023-08-27 | Outpatient (CLI) | payer OTHER ==
[2023-08-27 18:54] LABS: Appearance,Urine Cloudy (Clear); Bilirubin,Urine Negative (Negative); Blood,Urine Negative (Negative); Color,Urine Yellow (Yellow); Ketones,Urine Negative (Negative); Nitrite,Urine Negative (Negative); PH, Urine 6.5; Specific Gravity,Urine 1.006 (1.001-1.030); Urobilinogen,Urine 0.2 E.U./DL
[2023-08-27 19:16] LABS: Bacteria,Urine None Seen (None Seen)
[2023-08-27 19:25] LABS: ALT 39 U/L (8-44); AST 28 U/L (13-35); Albumin 4.4 g/dL (3.8-4.9); Albumin/Globulin Ratio 1.69 Ratio (1.60-3.17); Alkaline Phosphatase 44 U/L (41-126); Blood Urea Nitrogen 9.2 mg/dL (9.0-27.0); Calcium 9.8 mg/dL (8.7-10.3); Carbon Dioxide 24.1 mmol/L (21.6-31.8); Chloride 101 mmol/L (96-109); Globulin 2.6 g/dL (1.6-3.3); Glucose 85 mg/dL (70-110); Potassium 4.6 mmol/L (3.5-5.5); Sodium 137 mmol/L (135-145); Total Bilirubin <0.2 mg/dL (0.3-1.2)
[2023-08-27 19:41] LABS: Hepatitis C IgG Antibody Nonreactive (Nonreactive)
[2023-08-27 20:17] LABS: Basophils # (A) 0.06 X 10*3/uL (0.00-0.10); Basophils % (A) 0.7 %; Eosinophils # (A) 0.63 X 10*3/uL (0.04-0.35); Eosinophils % (A) 7.8 %; HCT 39.8 % (37.2-46.3); HGB 12.4 g/dL (12.0-15.0); Lymphocytes # (A) 3.05 X 10*3/uL (0.90-5.00); Lymphocytes % (A) 37.8 %; MCH 29.9 pg (27.0-32.0); MCHC 31.2 g/dL (32.0-37.0); MCV 95.9 FL (80.0-97.0); Mean Platelet Volume 10.7 FL (9.5-12.2); Monocytes # (A) 0.71 X 10*3/uL (0.20-1.00); Monocytes % (A) 8.8 %; NRBC Per 100 WBC 0 X 10*3/uL (0.00-0.01); Neutrophils # (A) 3.58 X 10*3/uL (1.80-7.70); Neutrophils % (A) 44.5 %; Platelet Count 369 X 10*3/uL (140-440); RBC 4.15 X 10*6/uL (4.10-5.20); RDW 12.1 % (11.5-14.5); WBC 8.06 X 10*3/uL (4.50-10.00)
== END | disposition home or self-care (01) ==
LOC: LABWHC1 12:27
PROVIDERS: ATTEND Psychiatry & Neurology Psychiatry
DX: F31.81 Bipolar II disorder (principal); F11.20 Opioid dependence, uncomplicated
CPT/HCPCS: 36415; 80053; 80178; 81001; 83036; 84439; 84443; 85025; 86704; 86780; 86803

== ENCOUNTER → 2024-04-24 | Outpatient (CLI) | payer OTHER ==
[2024-04-24 19:14] LABS: Blood Urea Nitrogen 10.5 mg/dL (9.0-27.0); T4, Free (Free Thyroxine) 0.49 ng/dL (0.80-1.80)
== END | disposition home or self-care (01) ==
LOC: LABWHC1 13:00
PROVIDERS: ATTEND Psychiatry & Neurology Psychiatry
DX: F31.9 Bipolar disorder, unspecified (principal)
CPT/HCPCS: 36415; 80178; 82565; 84439; 84443; 84520

== ENCOUNTER → 2024-05-08 | Outpatient (CLI) | payer OTHER ==
--- NOTE | 2024-05-08 15:18 | US ---
EXAMINATION TYPE: US groin LT DATE OF EXAM: 05/08/2024 COMPARISON: NONE CLINICAL INDICATION: Female, 33 years old with history of R10.32 Left groin pain; Left lump on the la angy. TECHNIQUE: Multiple grayscale and color ultrasound images in the left labial region were obtained. FINDINGS/IMPRESSION: There is an ill-defined hypoechoic lesion within the left labral soft tissues me asuring 0.7 x 0.3 x 0.6 cm. This is approximately 1 to 2 mm below the skin surface. No internal color flow or posterior acoustic enhancement. This may represent a hematoma versus abscess versus sebaceou s cyst. Versus other etiologies. No distinct tract to the skin surface identified. [facility], , 05/08/2024 3:16 PM
== END | disposition home or self-care (01) ==
LOC: RADUSWWP 14:49
PROVIDERS: ATTEND Family Medicine
DX: R10.32 Left lower quadrant pain (principal); N90.7 Vulvar cyst

== ENCOUNTER 2024-07-19 16:02 | Emergency (ER) | payer OTHER ==
--- NOTE | 2024-07-19 16:27 | ED ---
General Adult HPI - General Chief complaint: Urogenital Stated complaint: Abd Pain/BL Leg Pain/NV Time Seen by Provider: 07/19/24 16:11 Source: patient, RN notes reviewed Mode of arrival: ambulatory Limitations: no limitations - History of Present Illness Initial comments: 33-year-old female presenting to the emergency room with complaints of bilateral lower abdominal/pelvic pain that started a few hours prior to arrival. Patient states that the pain worsens with urination. She denies vaginal discharge, odor, abnormal uterine bleeding, constipation, diarrhea, dark or tarry stools, bloody stools. Patient states the pain will mildly radiate into her back. Endorses associated nausea with no reported emesis. Denies fevers, chills. Denies chance of stating that she has an IUD in place. Denies concern for STI/STD. - Related Data Home Medications Medication Instructions Recorded Confirmed buPROPion HCL [Wellbutrin SR] 200 mg PO DAILY 11/21/22 07/05/23 cloNIDine HCL [Catapres] 0.1 mg PO BID PRN 11/21/22 07/05/23 Dextroamphetamine/Amphetamine 20 mg PO BID@0800,1200 07/05/23 07/05/23 [Adderall Xr 20 mg Capsule] Gabapentin 300 mg PO TID 07/05/23 07/05/23 [place] Carbonate [Lithobid] 600 mg PO HS 07/05/23 07/05/23 QUEtiapine [SEROquel] 50 mg PO HS 07/05/23 07/05/23 QUEtiapine [SEROquel] 50 mg PO HS PRN 07/05/23 07/05/23 diazePAM [Valtoco] 10 mg NASAL ONCE PRN MDD 2 sprays 07/05/23 07/05/23 Previous Rx's Medication Instructions Recorded Folic Acid 1 mg PO DAILY #30 tablet 07/06/23 Thiamine [Vitamin B-1] 100 mg PO DAILY #14 tab 07/06/23 Allergies Allergy/AdvReac Type Severity Reaction Status Date / Time codeine Allergy Swelling Verified 07/05/23 18:37 Review of Systems ROS Statement: Those systems with pertinent positive or pertinent negative responses have been documented in the HPI. ROS Other: All systems not noted in ROS Statement are negative. Past Medical History Past Medical History: Seizure Disorder Additional Past Medical History / Comment(s): Patient has seziure in the past due to ETOH detox. Had a seizure approx 1 month ago and was drinking at the time. Colitis and has been admitted in the past for this. History of Any Multi-Drug Resistant Organisms: None Reported Past Surgical History: No Surgical Hx Reported Additional Past Surgical History / Comment(s): IUD Past Anesthesia/Blood Transfusion Reactions: No Reported Reaction Past Psychological History: Anxiety, Bipolar, Depression Smoking Status: Vaper Past Alcohol Use History: Abuse, Daily Past Drug Use History: None Reported General Exam Limitations: no limitations General appearance: alert, in no apparent distress ENT exam: Present: normal exam, mucous membranes moist Neck exam: Present: normal inspection. Absent: tenderness, meningismus, lymphadenopathy Respiratory exam: Present: normal lung sounds bilaterally. Absent: respiratory distress, wheezes, rales, rhonchi, stridor Cardiovascular Exam: Present: regular rate, normal rhythm, normal heart sounds GI/Abdominal exam: Present: soft, tenderness (bilateral lower pelvic pain ), normal bowel sounds. Absent: distended, guarding, rebound, rigid Extremities exam: Present: normal inspection, full ROM, normal capillary refill. Absent: tenderness, pedal edema, joint swelling, calf tenderness Back exam: Present: normal inspection. Absent: CVA tenderness (R), CVA tenderne ss (L) Skin exam: Present: warm, dry, intact, normal color. Absent: rash Course Vital Signs 07/19/24 07/19/24 07/19/24 16:06 17:31 18:52 Temperature 97.4 F L 97.3 F L Pulse Rate 63 65 66 Respiratory 16 17 18 Rate Blood Pressure 133/86 128/67 130/70 O2 Sat by Pulse 98 98 98 Oximetry Medical Decision Making - Medical Decision Making Was pt. sent in by a medical professional or institution (, PA, PLATE GRINDER, urgent care, hospital, or fci...) When possible be specific @ -No Did you speak to anyone other than the patient for history (EMS, parent, family, police, friend...)? What history was obtained from this source @ -No Did you review nursing and triage notes (agree or disagree)? Why? @ -I reviewed and agree with nursing and triage notes Were old charts reviewed (outside hosp., previous admission, EMS record, old EKG, old radiological studies, urgent care reports/EKG's, fci records)? Report findings @ -No old charts were reviewed Differential Diagnosis (chest pain, altered mental status, abdominal pain women, abdominal pain men, vaginal bleeding, weakness, fever, dyspnea, syncope, headache, dizziness, GI bleed, back pain, seizure, CVA, palpatations, mental health, musculoskeletal)? @ -Differential Abdominal Pain Women: Appendicitis, Cholecystitis, diverticulosis, ischemic bowel, pancreatitis, hepatitis, UTI, gastroenteritis, AAA, incarcerated hernia, bowel obstruction, constipation, inflammatory bowel, hepatitis, peptic ulcer disease, splenic infarction, perforated viscus, vulvitis, ovarian torsion, PID, kidney stone, placenta abruption, this is not meant to be an all-inclusive list EKG interpreted by me (3pts min.). @ -None X-rays interpreted by me (1pt min.). @ -None done CT interpreted by me (1pt min.). @ -None done U/S interpreted by me (1pt. min.). @ -Ultrasound of the kidneys, ureters, bladder reveals no evidence of hydronephrosis or nephrolithiasis Pelvic ultrasound good arterial venous flow within bilateral ovaries with no evidence of ovarian torsion IUD present within the uterus What testing was considered but not performed or refused? (CT, X-rays, U/S, labs)? Why? @ -None What meds were considered but not given or refused? Why? @ -None Did you discuss the management of the patient with other professionals (professionals i.e. , PA, PLATE GRINDER, lab, RT, psych nurse, child protective services social worker, military lawyer, teacher, bsa/aml compliance officer, case management social worker)? Give summary @ -No Was smoking cessation discussed for >3mins.? @ -No Was critical care preformed (if so, how long)? @ -No Were there social determinants of health that impacted care today? How? (Homelessness, low income, unemployed, alcoholism, drug addiction, transportation, low edu. Level, literacy, decrease access to med. care, penitentiary, rehab)? @ -No Was there de-escalation of care discussed even if they declined (Discuss DNR or withdrawal of care, Hospice)? DNR status @ -No What co-morbidities impacted this encounter? (DM, HTN, Smoking, COPD, CAD, Cancer, CVA, ARF, Chemo, Hep., AIDS, mental health diagnosis, sleep apnea, morbid obesity)? @ -None Was patient admitted / discharged? Hospital course, mention meds given and route, prescriptions, significant lab abnormalities, going to OR and other pertinent info. @ -Discharged. 33-year-old female presents emergency room complaint of bilateral lower abdominal/pelvic pain. Patient is noted to be holding her abdomen on evaluation in the examination bed. Pain is reproducible on examination. She states the pain radiates into the back however there is no CVA tenderness bilaterally. Patient is provided with fluids, Zofran, Tylenol for pain relief. Laboratory testing is unremarkable including CBC, CMP, hCG is negative. Patient's urine consistent with infection including numerous epithelial cells with white cells, patient is not having urinary symptoms therefore we will not be treated for infection as urine is sent for culture. Ultrasound imaging of the kidneys, ureters, bladder, pelvic ultrasound was unremarkable no evidence of ovarian torsion, nephrolithiasis or hydronephrosis. On reevaluation patient states that she is feeling well pain is resolved. Recommend follow-up with primary care provider for repeat urinalysis. Return parameters discussed. Case discussed with Dr. Carpenter Undiagnosed new problem with uncertain prognosis? @ -No Drug Therapy requiring intensive monitoring for toxicity (Heparin, Nitro, Insulin, Cardizem)? @ -No Were any procedures done? @ -No Diagnosis/symptom? @ -pelvic./abdominal pain, unspecified Acute, or Chronic, or Acute on Chronic? @ -acute Uncomplicated (without systemic symptoms) or Complicated (systemic symptoms)? @ -uncomplicated Side effects of treatment? @ -No Exacerbation, Progression, or Severe Exacerbation? @ -No Poses a threat to life or bodily function? How? (Chest pain, [place], [place], pneumonia, PE, COPD, DKA, ARF, appy, cholecystitis, CVA, Diverticulitis, Homicidal, Suicidal, threat to staff... and all critical care pts) @ -No - Lab Data Result diagrams: 07/19/24 16:46 07/19/24 16:46 Lab Results 07/19/24 07/19/24 07/19/24 Range/Units 16:46 16:46 16:46 WBC 10.11 H (4.50-10.00) 10*3/uL RBC 4.24 (4.10-5.20) 10*6/uL Hgb 12.8 (12.0-15.0) g/dL Hct 39.3 (37.2-46.3) % MCV 92.7 (80.0-97.0) fL MCH 30.2 (27.0-32.0) pg MCHC 32.6 (32.0-37.0) g/dL Plt Count 298 (140-440) 10*3/uL MPV 9.9 (9.5-12.2) fL Immature Gran % (Auto) 0.2 % Neutrophils % 64.7 % Lymphocytes % 24.4 % Monocytes % 4.4 % Eosinophils % 5.6 % Basophils % 0.7 % Immature Gran # 0.02 (0.00-0.04) 10*3/uL Neutrophils # 6.54 (1.80-7.70) 10*3/uL Lymphocytes # 2.47 (0.90-5.00) 10*3/uL Monocytes # 0.44 (0.20-1.00) 10*3/uL Eosinophils # 0.57 H (0.04-0.35) 10*3/uL Basophils # 0.07 (0.00-0.10) 10*3/uL Sodium 135 L (137-145) mmol/L Potassium 4.2 (3.5-5.1) mmol/L Chloride 101 (98-107) mmol/L Carbon Dioxide 27 (22-30) mmol/L Anion Gap 7 mmol/L BUN 20 H (7-17) mg/dL Creatinine 0.82 (0.52-1.04) mg/dL Est GFR (CKD-EPI)AfAm >90 (>60 ml/min/1.73 sqM) Est GFR (CKD-EPI)NonAf >90 (>60 ml/min/1.73 sqM) Glucose 133 H (74-99) mg/dL Plasma Lactic Acid Devin 1.0 (0.7-2.0) mmol/L Calcium 9.3 (8.4-10.2) mg/dL Magnesium 1.9 (1.6-2.3) mg/dL Total Bilirubin 0.4 (0.2-1.3) mg/dL AST 29 (14-36) U/L ALT 19 (4-34) U/L Alkaline Phosphatase 40 (38-126) U/L Total Protein 7.3 (6.3-8.2) g/dL Albumin 4.5 (3.5-5.0) g/dL Lipase 108 (23-300) U/L HCG, Qual Not Detected Urine Color Urine Appearance (Clear) Urine pH (5.0-8.0) Ur Specific [place] (1.001-1.035) Urine Protein (Negative) Urine Glucose (UA) (Negative) Urine Ketones (Negative) Urine Blood (Negative) Urine Nitrite (Negative) Urine Bilirubin (Negative) Urine Urobilinogen (<2.0) mg/dL Ur Leukocyte Esterase (Negative) Urine RBC (0-5) /hpf Urine WBC (0-5) /hpf Ur Squamous Epith Cells (0-4) /hpf Urine Bacteria (None) /hpf Urine Mucus (None) /hpf 07/19/24 Range/Units 17:03 WBC (4.50-10.00) 10*3/uL RBC (4.10-5.20) 10*6/uL Hgb (12.0-15.0) g/dL Hct (37.2-46.3) % MCV (80.0-97.0) fL MCH (27.0-32.0) pg MCHC (32.0-37.0) g/dL Plt Count (140-440) 10*3/uL MPV (9.5-12.2) fL Immature Gran % (Auto) % Neutrophils % % Lymphocytes % % Monocytes % % Eosinophils % % Basophils % % Immature Gran # (0.00-0.04) 10*3/uL Neutrophils # (1.80-7.70) 10*3/uL Lymphocytes # (0.90-5.00) 10*3/uL Monocytes # (0.20-1.00) 10*3/uL Eosinophils # (0.04-0.35) 10*3/uL Basophils # (0.00-0.10) 10*3/uL Sodium (137-145) mmol/L Potassium (3.5-5.1) mmol/L Chloride (98-107) mmol/L Carbon Dioxide (22-30) mmol/L Anion Gap mmol/L BUN (7-17) mg/dL Creatinine (0.52-1.04) mg/dL Est GFR (CKD-EPI)AfAm (>60 ml/min/1.73 sqM) Est GFR (CKD-EPI)NonAf (>60 ml/min/1.73 sqM) Glucose (74-99) mg/dL Plasma Lactic Acid Devin (0.7-2.0) mmol/L Calcium (8.4-10.2) mg/dL Magnesium (1.6-2.3) mg/dL Total Bilirubin (0.2-1.3) mg/dL AST (14-36) U/L ALT (4-34) U/L Alkaline Phosphatase (38-126) U/L Total Protein (6.3-8.2) g/dL Albumin (3.5-5.0) g/dL Lipase (23-300) U/L HCG, Qual Urine Color Light Yellow Urine Appearance Cloudy H (Clear) Urine pH 6.5 (5.0-8.0) Ur Specific [place] 1.017 (1.001-1.035) Urine Protein Negative (Negative) Urine Glucose (UA) Negative (Negative) Urine Ketones Negative (Negative) Urine Blood Negative (Negative) Urine Nitrite Negative (Negative) Urine Bilirubin Negative (Negative) Urine Urobilinogen <2.0 (<2.0) mg/dL Ur Leukocyte Esterase Small H (Negative) Urine RBC 9 H (0-5) /hpf Urine WBC 13 H (0-5) /hpf Ur Squamous Epith Cells 41 H (0-4) /hpf Urine Bacteria Many H (None) /hpf Urine Mucus Rare H (None) /hpf Disposition Clinical Impression: Pelvic pain Disposition: HOME SELF-CARE Condition: Stable Instructions (If sedation given, give patient instructions): Pelvic Pain in Women (ED) Additional Instructions: Please return to the Emergency Department if symptoms worsen or any other concerns. Is patient prescribed a controlled substance at d/c from ED?: No Referrals: Princess Almendarez MD [Primary Care Provider] - 1-2 days Time of Disposition: 18:41
[2024-07-19 16:54] LABS: Basophils # (A) 0.07 10*3/uL (0.00-0.10); Basophils % (A) 0.7 %; Eosinophils # (A) 0.57 10*3/uL (0.04-0.35); Eosinophils % (A) 5.6 %; HCT 39.3 % (37.2-46.3); HGB 12.8 g/dL (12.0-15.0); Lymphocytes # (A) 2.47 10*3/uL (0.90-5.00); Lymphocytes % (A) 24.4 %; MCH 30.2 pg (27.0-32.0); MCHC 32.6 g/dL (32.0-37.0); MCV 92.7 fL (80.0-97.0); Mean Platelet Volume 9.9 fL (9.5-12.2); Monocytes # (A) 0.44 10*3/uL (0.20-1.00); Monocytes % (A) 4.4 %; Neutrophils # (A) 6.54 10*3/uL (1.80-7.70); Neutrophils % (A) 64.7 %; Platelet Count 298 10*3/uL (140-440); RBC 4.24 10*6/uL (4.10-5.20); RDW 12.8 % (11.5-14.5); WBC 10.11 10*3/uL (4.50-10.00)
[2024-07-19] MEDS: ONDANSETRON 4 MG/2 ML VIAL IVP STA (17:03)
[2024-07-19 17:06] LABS: HCG,Qualitative Serum Not Detected
[2024-07-19] MEDS: SODIUM CHLORIDE 0.9% 500 ML 500 ML IV ONE (17:08)
[2024-07-19 17:16] LABS: Appearance,Urine Cloudy (Clear); Bacteria,Urine Many /hpf; Bilirubin,Urine Negative (Negative); Blood,Urine Negative (Negative); Color,Urine Light Yellow; Glucose,Urine (UA) Negative (Negative); Ketones,Urine Negative (Negative); Leukocyte Esterase,Urine Small (Negative); Mucus,Urine Rare /hpf; Nitrite,Urine Negative (Negative); PH, Urine 6.5 (5.0-8.0); Protein,Urine Negative (Negative); RBC,Urine 9 /hpf (0-5); Specific Gravity,Urine 1.017 (1.001-1.035); Squamous Epithelial Cell,Urine 41 /hpf (0-4); Urobilinogen,Urine <2.0 mg/dL (<2.0); WBC,Urine 13 /hpf (0-5)
[2024-07-19 17:22] LABS: ALT 19 U/L (4-34); AST 29 U/L (14-36); African American GFR (CKD) >90 (>60 ml/min/1.73 sqM); Albumin 4.5 g/dL (3.5-5.0); Alkaline Phosphatase 40 U/L (38-126); Anion Gap 7 mmol/L; Blood Urea Nitrogen 20 mg/dL (7-17); Calcium 9.3 mg/dL (8.4-10.2); Carbon Dioxide 27 mmol/L (22-30); Chloride 101 mmol/L (98-107); Glucose 133 mg/dL (74-99); Lipase 108 U/L (23-300); Magnesium 1.9 mg/dL (1.6-2.3); Non-African American GFR(CKD) >90 (>60 ml/min/1.73 sqM); Potassium 4.2 mmol/L (3.5-5.1); Sodium 135 mmol/L (137-145); Total Bilirubin 0.4 mg/dL (0.2-1.3); Total Protein 7.3 g/dL (6.3-8.2)
[2024-07-19] MEDS: ACETAMINOPHEN IV (For NPO) 1,000 MG in EMPTY BAG 1 BAG IVPB STA (17:29)
--- NOTE | 2024-07-19 18:23 | US ---
EXAMINATION TYPE: US pelvic complete DATE OF EXAM: 07/19/2024 COMPARISON: NONE CLINICAL INDICATION: Female, 33 years old with history of bilateral lower pelvic pain, r/o torsion; P ain TECHNIQUE: Transabdominal (TA). FINDINGS: EXAM MEASUREMENTS: Uterus: 9.3 x 4.0 x 4.2 cm Endometrial Stripe: Not well seen due to IUD Right Ovary: 3.4 x 1.4 x 2.6 cm Left Ovary: 4.8 x 2.7 x 4.2 cm 1. Uterus: Retroverted IUD visualized. 2. Endometrium: Obscured by IUD 3. Right Ovary: wnl 4. Left Ovary: wnl Spectral, color and waveform doppler imaging shows good arterial and venous flow within the ovaries ; there is no evidence for ovarian torsion. 5. Bilateral Adnexa: wnl 6. Posterior cul-de-sac: wnl Urinary bladder is sonolucent. The posterior wall is normal IMPRESSION: 1. IUD present within the uterus O-RADS 2021 [email or web address] [facility], , 07/19/2024 6:21 PM
--- NOTE | 2024-07-19 18:24 | US ---
EXAMINATION TYPE: US kidneys/renal and bladder DATE OF EXAM: 07/19/2024 COMPARISON: NONE CLINICAL INDICATION: Female, 33 years old with history of back/flank pain, evaluate for stones; Pain TECHNIQUE: Grayscale imaging of the bilateral kidneys and urinary bladder: FINDINGS: EXAM MEASUREMENTS: Right Kidney: 10 x 3.8 x 3.6 cm Left Kidney: 10.4 x 4.6 x 4.3 cm Right Kidney: No hydronephrosis or masses seen Left Kidney: No hydronephrosis or masses seen Bladder: wnl Bilateral Jets seen: Yes There is no evidence for hydronephrosis at this point in time. No nephrolithiasis is seen. No marija s are identified. The urinary bladder is anechoic. Urinary bladder is sonolucent. The posterior wall is normal. IMPRESSION: 1. Unremarkable renal ultrasound [facility], , 07/19/2024 6:22 PM
[2024-07-19 18:53] VITALS: BP 130/70; PULSE 66; RESP 18; TEMP 97.3
== END 2024-07-19 18:52 | disposition home or self-care (01) ==
LOC: EC 16:02
DX: R10.2 Pelvic and perineal pain (principal); F17.290 Nicotine dependence, other tobacco product, uncomplicated; Z88.5 Allergy status to narcotic agent
CPT/HCPCS: 36415; 80053; 83605; 83690; 83735; 85025; 81001; 84703; 87086; 93975; 76856; 76770; 99284; 96365; 96375; J2405; J0131

== ENCOUNTER → 2024-07-24 | Outpatient (CLI) | payer OTHER ==
[2024-07-24 19:37] LABS: Blood Urea Nitrogen 23.6 mg/dL (9.0-27.0); T4, Free (Free Thyroxine) 0.98 ng/dL (0.80-1.80)
== END | disposition home or self-care (01) ==
LOC: LABWHC1 13:30
PROVIDERS: ATTEND Psychiatry & Neurology Psychiatry
DX: F31.9 Bipolar disorder, unspecified (principal)
CPT/HCPCS: 36415; 80178; 82565; 84439; 84443; 84520

== ENCOUNTER 2024-08-10 00:40 | Emergency (ER) | payer OTHER ==
[2024-08-10 00:43] VITALS: BP 132/88; PULSE 81; RESP 18; TEMP 97.9
--- NOTE | 2024-08-10 03:55 | ED ---
General Adult HPI - General Chief complaint: Extremity Problem,Nontraumatic Stated complaint: leg swelling Time Seen by Provider: 08/10/24 00:56 Source: patient, RN notes reviewed Mode of arrival: ambulatory Limitations: no limitations - History of Present Illness Initial comments: This is a 33-year-old female with history including seizure disorder and EtOH abuse presenting for extremity pain upon waking this morning. Patient states she awoke this morning with noted shooting "nerve" pain in her right arm/hand and right leg. Patient also notes some swelling in her right leg as well. Patient states worst pain is in her right arm (7/10) that worsens with attempted furniture technician. Patient also mentions pain in her right neck despite use of Tyle nol/Motrin. Patient states she is a smoker but denies OCP use, recent long distance travel, surgery, recent trauma or history of blood clots. Denies fever, chills, dyspnea, chest pain, weakness, abdominal pain, N/V/D, urinary symptoms. Onset/Timin -: days(s) Location: neck, right, upper extremity, lower extremity Severity scale (1-10): 7 Quality: other ("Shooting, nerve") Consistency: constant Improves with: immobilization Worsens with: movement Treatments Prior to Arrival: NSAID - Related Data Home Medications Medication Instructions Recorded Confirmed buPROPion HCL [Wellbutrin SR] 200 mg PO DAILY 11/21/22 07/05/23 cloNIDine HCL [Catapres] 0.1 mg PO BID PRN 11/21/22 07/05/23 Dextroamphetamine/Amphetamine 20 mg PO BID@0800,1200 07/05/23 07/05/23 [Adderall Xr 20 mg Capsule] Gabapentin 300 mg PO TID 07/05/23 07/05/23 [place] Carbonate [Lithobid] 600 mg PO HS 07/05/23 07/05/23 QUEtiapine [SEROquel] 50 mg PO HS 07/05/23 07/05/23 QUEtiapine [SEROquel] 50 mg PO HS PRN 07/05/23 07/05/23 diazePAM [Valtoco] 10 mg NASAL ONCE PRN MDD 2 sprays 07/05/23 07/05/23 Previous Rx's Medication Instructions Recorded Folic Acid 1 mg PO DAILY #30 tablet 07/06/23 Thiamine [Vitamin B-1] 100 mg PO DAILY #14 tab 07/06/23 Gabapentin 300 mg PO Q8H #30 cap 08/10/24 Ibuprofen [Motrin] 600 mg PO Q8HR PRN #30 tab 08/10/24 Allergies Allergy/AdvReac Type Severity Reaction Status Date / Time codeine Allergy Swelling Verified 08/10/24 00:43 Review of Systems ROS Statement: Those systems with pertinent positive or pertinent negative responses have been documented in the HPI. ROS Other: All systems not noted in ROS Statement are negative. Past Medical History Past Medical History: Seizure Disorder Additional Past Medical History / Comment(s): Patient has seziure in the past due to ETOH detox. Had a seizure approx 1 month ago and was drinking at the time. Colitis and has been admitted in the past for this. History of Any Multi-Drug Resistant Organisms: None Reported Past Surgical History: No Surgical Hx Reported Additional Past Surgical History / Comment(s): IUD Past Anesthesia/Blood Transfusion Reactions: No Reported Reaction Past Psychological History: Anxiety, Bipolar, Depression Smoking Status: Vaper Past Alcohol Use History: Abuse, Daily Past Drug Use History: None Reported General Exam Limitations: no limitations General appearance: alert, in no apparent distress Head exam: Present: atraumatic, normocephalic, normal inspection Eye exam: Present: normal appearance, PERRL, EOMI. Absent: scleral icterus, conjunctival injection, periorbital swelling ENT exam: Present: normal exam, mucous membranes moist Neck exam: Present: normal inspection. Absent: tenderness, meningismus, lymphadenopathy Respiratory exam: Present: normal lung sounds bilaterally. Absent: respiratory distress, wheezes, rales, rhonchi, stridor Cardiovascular Exam: Present: regular rate, normal rhythm, normal heart sounds. Absent: systolic murmur, diastolic murmur, rubs, gallop, clicks GI/Abdominal exam: Present: soft, normal bowel sounds. Absent: distended, tenderness, guarding, rebound, rigid Extremities exam: Present: normal inspection, full ROM, normal capillary refill, other (Bilateral upper and lower extremity distal neurovascular motor function intact.). Absent: tenderness, pedal edema (No significant lower extremity edema or color change bilaterally), joint swelling, calf tenderness Back exam: Present: normal inspection Neurological exam: Present: alert, oriented X3, CN II-XII intact Psychiatric exam: Present: normal affect, normal mood Skin exam: Present: warm, dry, intact, normal color. Absent: rash Course Vital Signs 08/10/24 00:41 Temperature 97.9 F Pulse Rate 81 Respiratory 18 Rate Blood Pressure 132/88 O2 Sat by Pulse 100 Oximetry Medical Decision Making - Medical Decision Making Was pt. sent in by a medical professional or institution (, GINA, SENIOR NETWORK ENGINEER, urgent care, hospital, or fci...) When possible be specific @ -[No] Did you speak to anyone other than the patient for history (EMS, parent, family, police, friend...)? What history was obtained from this source @ -[No] Did you review nursing and triage notes (agree or disagree)? Why? @ -[I reviewed and agree with nursing and triage notes] Were old charts reviewed (outside hosp., previous admission, EMS record, old EKG, old radiological studies, urgent care reports/EKG's, fci records)? Report findings @ -[No old charts were reviewed] Differential Diagnosis (chest pain, altered mental status, abdominal pain women, abdominal pain men, vaginal bleeding, weakness, fever, dyspnea, syncope, headache, dizziness, GI bleed, back pain, seizure, CVA, palpatations, mental health, musculoskeletal)? @ -Differential Musculoskeletal Muscular strain, contusion, ligament sprain, fracture, arthritis, septic arthritis, bursitis, cellulitis, muscle spasm, nerve compression, DVT, arterial occlusion, herpes zoster, electrolyte abnormality, tumor.... This is not meant to be in all inclusive list EKG interpreted by me (3pts min.). @ -Not done X-rays interpreted by me (1pt min.). @ -[None done] CT interpreted by me (1pt min.). @ -[None done] U/S interpreted by me (1pt. min.). @ -[None done] What testing was considered but not performed or refused? (CT, X-rays, U/S, labs)? Why? @ -Patient declined RLE Doppler ultrasound to rule out DVT What meds were considered but not given or refused? Why? @ -[None] Did you discuss the management of the patient with other professionals (professionals i.e. GINA Estrada, SENIOR NETWORK ENGINEER, lab, RT, psych nurse, social media executive, tableau administrator, teacher, state highway police officer, case repairer)? Give summary @ -[No] Was smoking cessation discussed for >3mins.? @ -[No] Was critical care preformed (if so, how long)? @ -[No] Were there social determinants of health that impacted care today? How? (Homelessness, low income, unemployed, alcoholism, drug addiction, transportation, low edu. Level, literacy, decrease access to med. care, group home, rehab)? @ -[No] Was there de-escalation of care discussed even if they declined (Discuss DNR or withdrawal of care, Hospice)? DNR status @ -[No] What co-morbidities impacted this encounter? (DM, HTN, Smoking, COPD, CAD, Cancer, CVA, ARF, Chemo, Hep., AIDS, mental health diagnosis, sleep apnea, morbid obesity)? @ -[None] Was patient admitted / discharged? Hospital course, mention meds given and route, prescriptions, significant lab abnormalities, going to OR and other pertinent info. @ -[hospital course] Undiagnosed new problem with uncertain prognosis? @ -[No] Drug Therapy requiring intensive monitoring for toxicity (Heparin, Nitro, Insulin, Cardizem)? @ -[No] Were any procedures done? @ -[No] Diagnosis/symptom? @ -Right side radiculopathy Acute, or Chronic, or Acute on Chronic? @ -Acute Uncomplicated (without systemic symptoms) or Complicated (systemic symptoms)? @ -Uncomplicated Side effects of treatment? @ -[No] Exacerbation, Progression, or Severe Exacerbation? @ -[No] Poses a threat to life or bodily function? How? (Chest pain, [place], [place], pneumonia, PE, COPD, DKA, ARF, appy, cholecystitis, CVA, Diverticulitis, Homicidal, Suicidal, threat to staff... and all critical care pts) @ -[No] Disposition Clinical Impression: Edema of right lower leg, Radiculopathy Disposition: HOME SELF-CARE Condition: Fair Instructions (If sedation given, give patient instructions): Cervical Radiculopathy (ED), Lumbar Radiculopathy (ED), Leg Edema (ED) Additional Instructions: Apply compression stocking and elevate leg to address edema. Follow-up with PCP for ongoing management of extremity pain and swelling. Prescriptions: Gabapentin 300 mg PO Q8H #30 cap Ibuprofen [Motrin] 600 mg PO Q8HR PRN #30 tab PRN Reason: Pain Is patient prescribed a controlled substance at d/c from ED?: No Referrals: None,Stated [Primary Care Provider] - 1-2 days Ella Fernandez MD [REFERRING] - 1-2 days Time of Disposition: 04:23
--- NOTE | 2024-08-10 04:04 | XR ---
EXAM: XR Cervical Spine, 3 Views CLINICAL HISTORY: ITS.REASON XR Reason: Neck pain, shooting pain to RUE, RLE TECHNIQUE: Frontal , open mouth odontoid and lateral views of the cervical spine. COMPARISON: 05/26/2020 FINDINGS: Vertebrae: Unremarkable. No definite fracture. Normal alignment. Disc spaces: No acute findings. No significant narrowing. Soft tissues: Unremarkable. IMPRESSION: No acute findings or substantial change.
--- NOTE | 2024-08-10 04:04 | XR ---
EXAM: XR Lumbosacral Spine, 2 or 3 Views CLINICAL HISTORY: ITS.REASON XR Reason: Neck pain, shooting pain to RUE, RLE TECHNIQUE: Frontal , coned-down lateral and lateral views of the lumbar spine and sacrum. COMPARISON: No relevant prior studies available. FINDINGS: Vertebrae: Unremarkable. No fracture. Normal alignment. Sacrum/coccyx: Unremarkable as visualized. No fracture. Disc spaces: No acute findings. No significant narrowing. Soft tissues: Unremarkable. Other findings: T-shaped IUD. IMPRESSION: No acute findings in the lumbar spine.
[2024-08-10] MEDS: GABAPENTIN 300 MG CAP PO STA (04:28)
[2024-08-10] MEDS: ACETAMINOPHEN TAB 500 MG TAB PO STA (04:28)
[2024-08-10] MEDS: KETOROLAC 15 MG/ML 1 ML VIAL IM STA (04:29)
== END 2024-08-10 04:33 | disposition home or self-care (01) ==
LOC: EC 00:40
DX: R60.0 Localized edema (principal); M54.10 Radiculopathy, site unspecified; G40.909 Epilepsy, unspecified, not intractable, without status epilepticus; F17.290 Nicotine dependence, other tobacco product, uncomplicated; Z88.5 Allergy status to narcotic agent
CPT/HCPCS: 72040; 72100; 99283; 96372; J1885